=== PATIENT | male | born 1945 | race Caucasian/White ===

== ENCOUNTER 2018-05-01 20:38 | Emergency (ER) | payer MEDICARE, OTHER, SELFPAY ==
[2018-05-01 20:45] VITALS: BP 151/93; PULSE 71; RESP 18; O2SAT 97
--- NOTE | 2018-05-01 20:58 | DI.CT.S_ITS ---
PROCEDURE: CT KIDNEY URETER BLADDER (KUB) INDICATIONS: flank pain, hx kidney stone TECHNIQUE: Noncontrast 5 mm thick sections acquired from the diaphragms to the symphysis. 5 mm thick coronal and sagittal reformats were then performed. For radiation dose reduction, the following was used: automated exposure control, adjustment of mA and/or kV according to patient size. COMPARISON: [facility], CT, ABDOMEN/PELVIS WITH CONTRAST, 07/13/2017, 23:07. FINDINGS: Image quality: Excellent. Lung bases: Lung bases are clear. Heart size is normal. Urinary system: Both kidneys are normal in size. Nonobstructing 2 mm calculus within the superior pole left kidney. No right nephrolithiasis. No right hydronephrosis. Right ureter is within normal limits. There is mild left hydronephrosis and mild diffuse left ureteral dilatation. There is a 3 mm diameter calculus at the left ureterovesical junction. No hydronephrosis or perinephric fat stranding. Both ureters appear non-dilated throughout their expected courses. Bladder wall thickness is normal; no calcified bladder stones. Other solid organs: Liver is normal in size. Gallbladder is within normal limits. Pancreas is normal in contours. Spleen is normal in size. No adrenal nodules. Peritoneum and bowel: Small hiatal hernia. Unenhanced bowel loops demonstrate normal wall thickness and caliber. Diverticulosis of the descending and sigmoid colon. Normal appendix. No free fluid or air. Nodes and vessels: No retroperitoneal or mesenteric adenopathy by size criteria. Aorta and inferior vena cava are normal in caliber. Abdominal wall: No ventral hernias. Pelvis: No free pelvic fluid. No inguinal hernias or adenopathy. Bones: No suspicious bony lesions. No vertebral body compression fractures. IMPRESSION: 1. 3 mm diameter left ureterovesical junction calculus, with mild hydronephrosis. Small nonobstructing left renal calculus. 2. Small hiatal hernia. 3. Normal appendix. Dictated by: Arpit Avila M.D. on 05/01/2018 at 21:27 Approved by: Arpit Avila M.D. on 05/01/2018 at 21:29
--- NOTE | 2018-05-01 21:03 | ED_ITS ---
HPI - Abdominal Pain <GEOVANNA Whitten- - Last Filed: 05/01/18 21:57> General Chief Complaint: Abdominal Pain Stated Complaint: THINKS PASSING A KIDNEY STONE Time Seen by Provider: 05/01/18 20:49 Source: patient and family Mode of arrival: ambulatory Limitations: no limitations History of Present Illness HPI narrative: Patient is a 72-year-old male with history of kidney stone who presents with his with a chief complaint of left lower abdominal pain. He states this is consistent with his previous kidney stone. He states the pain comes in waves. He states he has vomited a few times with the pain. He denies any fevers, dysuria urgency or frequency. He denies any chest pain or shortness of breath. Denies any constipation or diarrhea. He states that the pain started a few hours ago. He denies calf the patient states his last bowel movement was today. He states no obvious blood in his urine. Related Data Home Medications Medication Instructions Recorded Confirmed simvastatin [Zocor] 20 mg PO Q DAY #0 11/16/12 Previous Rx's Medication Instructions Recorded hydrocodone-acetaminophen [[place]] 1 tab PO Q4HP PRN #15 tab 07/14/17 tamsulosin [Flomax] 0.4 mg PO Q DAY #7 cap 07/14/17 hydrocodone-acetaminophen 1 tab PO Q4-6H PRN #10 tab 05/01/18 ondansetron 4 mg PO TID-QID PRN #20 tab 05/01/18 tamsulosin [Flomax] 0.4 mg PO DAILY #7 cap 05/01/18 Review of Systems <CIARRA Whitten - Last Filed: 05/01/18 21:57> Review of Systems GENERAL: Denies chills, fatigue, malaise, fever, sweats. HEENT: Denies sinus pain, ear pain, sore throat, difficulty swallowing, dizziness. RESPIRATORY: Denies dyspnea, cough, wheezing, hemoptysis, sputum. CARDIOVASCULAR: Denies chest pain, palpitations, orthopnea, edema, GASTROINTESTINAL: See HPI : See HPI MUSCULOSKELETAL: denies weakness, joint pain, or bony pain SKIN: Denies rash, skin lesions, or other NEUROLOGIC: Denies weakness, headache, numbness, change in speech, confusion, seizures, incoordination. PSYCHIATRIC: No concerning psychosocial issues. 12 point review of systems is negative except for those stated above Exam <DORI Whitten - Last Filed: 05/01/18 21:57> Narrative Exam Narrative: GENERAL: This is a well-nourished, well-developed patient, sitting on stretcher with at bedside HEAD: Atraumatic. Normocephalic. No temporal or scalp tenderness. EYES: Pupils equal round and reactive. Extraocular motions intact. No scleral icterus. No injection or drainage. ENT: Nose without bleeding, purulent drainage or septal hematoma. Throat without erythema, tonsillar hypertrophy or exudate. Uvula midline. Airway patent. NECK: Trachea midline. No JVD or lymphadenopathy. Supple, nontender, no meningeal signs. CARDIOVASCULAR: Regular rate and rhythm without murmurs, gallops, or rubs. RESPIRATORY: Clear to auscultation. Breath sounds equal bilaterally. No wheezes , rales, or rhonchi. No cough or increased respiratory effort. GASTROINTESTINAL: Abdomen soft, diffuse tenderness lower left quadrant. nondistended. No hepato-splenomegaly, or palpable masses. No guarding. No palpable pulsatile mass. Active bowel sounds all 4 quadrants. EXTREMITIES: No clubbing, cyanosis, or edema. No joint tenderness, effusion, or edema noted. BACK: Nontender without deformity or crepitance. No flank tenderness. NEURO: AOx3. SKIN: No rash or erythema. Initial Vital Signs Initial Vital Signs: Vital Signs Pulse Rate 71 05/01/18 20:45 Respiratory Rate 18 05/01/18 20:45 Blood Pressure 151/93 H 05/01/18 20:45 Pulse Oximetry 97 05/01/18 20:45 <Kayden Oswald DO - Last Filed: 05/01/18 23:12> Initial Vital Signs Initial Vital Signs: Vital Signs Pulse Rate 71 05/01/18 20:45 Respiratory Rate 18 05/01/18 20:45 Blood Pressure 151/93 H 05/01/18 20:45 Pulse Oximetry 97 05/01/18 20:45 Course <DORI Whitten - Last Filed: 05/01/18 21:57> Orders Ordered: ED Orders 05/01/18 20:58 CT kidney ureter bladder (KUB) Stat 05/01/18 21:00 Amylase Stat Complete Blood Count AUTO DIFF Stat Comprehensive Metabolic Panel Stat Lipase Stat Discontinued Medications Hydrocodone Bitart/Acetaminophen ([place] 5/325) 2 tab PO NOW ONE Stop: 05/01/18 21:44 Last Admin: 05/01/18 21:58 Dose: 2 tab Hydrocodone Bitart/Acetaminophen (Vicodin Prepack) 1 bottle MISC SEEINSTR ONE Stop: 05/01/18 21:44 Last Admin: 05/01/18 21:58 Dose: 1 bottle Sodium Chloride (Normal Saline 0.9%) 1,000 mls @ 1,000 mls/hr IV BOLUS ONE Stop: 05/01/18 21:49 Last Infusion: 05/01/18 22:12 Dose: 0 mls/hr Admin: 05/01/18 21:05 Dose: 1,000 mls/hr Ketorolac Tromethamine (Toradol) 15 mg IV NOW ONE Stop: 05/01/18 20:59 Last Admin: 05/01/18 21:06 Dose: 15 mg Ondansetron HCl (Zofran) 4 mg IV NOW ONE Stop: 05/01/18 20:59 Last Admin: 05/01/18 21:06 Dose: 4 mg Ondansetron HCl (Zofran Odt Prepack) 1 bottle MISC SEEINSTR ONE Stop: 05/01/18 21:44 Last Admin: 05/01/18 21:58 Dose: 1 bottle Ondansetron HCl (Zofran) 4 mg IV NOW ONE Stop: 05/01/18 21:44 Last Admin: 05/01/18 22:01 Dose: 4 mg Tamsulosin HCl (Flomax) 0.4 mg PO NOW ONE Stop: 05/01/18 21:44 Last Admin: 05/01/18 21:58 Dose: 0.4 mg Reevaluation(s) Reevaluation #1: Patient states his pain is much improved since his Toradol. Denies any need for further pain or nausea medications at this time. Discussed waiting for his labs as well as the CT results. Patient and deny needs at this point time. Time: 21:30 Reevaluation #2: Discussed results CT scan with patient. Discussed straining urine, using Flomax for 1 week, pain medication nausea medication. Discussed follow-up primary care provider if he does not pass the stone. Discussed pushing fluid. Discussed monitoring renal labs given gradual increase in the past several visits. Time: 21:53 Vital Signs - 8 hr 05/01/18 20:45 05/01/18 22:13 Temperature 97.9 F Pulse Rate 71 65 Respiratory Rate 18 18 Blood Pressure 151/93 H 159/93 H Pulse Oximetry 97 99 <Kayden Oswlad DO - Last Filed: 05/01/18 23:12> Orders Ordered: ED Orders 05/01/18 20:58 CT kidney ureter bladder (KUB) Stat 05/01/18 21:00 Amylase Stat Complete Blood Count AUTO DIFF Stat Comprehensive Metabolic Panel Stat Lipase Stat Discontinued Medications Hydrocodone Bitart/Acetaminophen ([place] 5/325) 2 tab PO NOW ONE Stop: 05/01/18 21:44 Last Admin: 05/01/18 21:58 Dose: 2 tab Hydrocodone Bitart/Acetaminophen (Vicodin Prepack) 1 bottle MISC SEEINSTR ONE Stop: 05/01/18 21:44 Last Admin: 05/01/18 21:58 Dose: 1 bottle Sodium Chloride (Normal Saline 0.9%) 1,000 mls @ 1,000 mls/hr IV BOLUS ONE Stop: 05/01/18 21:49 Last Infusion: 05/01/18 22:12 Dose: 0 mls/hr Admin: 05/01/18 21:05 Dose: 1,000 mls/hr Ketorolac Tromethamine (Toradol) 15 mg IV NOW ONE Stop: 05/01/18 20:59 Last Admin: 05/01/18 21:06 Dose: 15 mg Ondansetron HCl (Zofran) 4 mg IV NOW ONE Stop: 05/01/18 20:59 Last Admin: 05/01/18 21:06 Dose: 4 mg Ondansetron HCl (Zofran Odt Prepack) 1 bottle MISC SEEINSTR ONE Stop: 05/01/18 21:44 Last Admin: 05/01/18 21:58 Dose: 1 bottle Ondansetron HCl (Zofran) 4 mg IV NOW ONE Stop: 05/01/18 21:44 Last Admin: 05/01/18 22:01 Dose: 4 mg Tamsulosin HCl (Flomax) 0.4 mg PO NOW ONE Stop: 05/01/18 21:44 Last Admin: 05/01/18 21:58 Dose: 0.4 mg Vital Signs - 8 hr 05/01/18 20:45 05/01/18 22:13 Temperature 97.9 F Pulse Rate 71 65 Respiratory Rate 18 18 Blood Pressure 151/93 H 159/93 H Pulse Oximetry 97 99 MDM - Abdominal Pain <INGRID WhittenP- - Last Filed: 05/01/18 21:57> Differential Diagnosis Differential diagnosis: Likely abdominal pain, acute appendicitis, calculus of kidney, constipation and diverticulitis Lab Data Attestation: I reviewed the patient's lab results. Result diagrams: 05/01/18 21:00 05/01/18 21:00 Lab Results 05/01/18 05/01/18 Range/Units 21:00 21:00 WBC 9.4 (4.5-11.0) X10^3/uL RBC 4.72 (4.5-5.9) X10^6/uL Hgb 15.2 (13.5-17.5) g/dL Hct 45.3 (41-53) % MCV 96.0 (80-100) fL MCH 32.2 (26-34) PG MCHC 33.5 (30-36) % RDW 13.0 (11.6-14.8) % Plt Count 242 (150-400) X10^3/uL Neut % (Auto) 74.4 (50-75) % Lymph % (Auto) 15.9 L (25-40) % [place] % (Auto) 7.4 (3-14) % Eos % (Auto) 1.7 L (2-4) % Baso % (Auto) 0.6 (0-2) % Neut # (Auto) 7000 H (1661-4278) /uL Sodium 143 (137-145) mmol/L Potassium 4.5 (3.4-5.1) mmol/L Chloride 103 (98-107) mmol/L Carbon Dioxide 25 (22-32) mmol/L BUN 25 H (9-20) mg/dL Creatinine 1.40 H (0.66-1.25) mg/dL Estimated GFR 49.5 L (>60) mL/min BUN/Creatinine Ratio 17.9 (6-22) Glucose 139 H (80-110) mg/dL Calcium 9.3 (8.4-10.2) mg/dL Total Bilirubin 0.5 (0.2-1.3) mg/dL AST 26 (17-59) IU/L ALT 31 (21-72) IU/L Alkaline Phosphatase 77 (38-126) U/L Total Protein 8.0 (6.3-8.2) g/dL Albumin 4.6 (3.5-5.0) g/dL Globulin 3.4 (1.7-4.1) g/dL Albumin/Globulin Ratio 1.4 (1.0-2.8) Amylase 102 (30-110) U/L Lipase 44 (23-300) U/L Point of care testing: Urine Dip Bedside Urine Glucose Negative Bedside Urine Bilirubin - Negative Bedside Urine Ketone - Negative Urine Specific [place]elle 1.015 Bedside Urine Occult Blood +++ Bedside Urine pH 6.5 Bedside Urine Protein +/- 15 Bedside Urine Urobilinogen - Negative Bedside Urine Nitrite - Negative Bedside Urine Leukocytes - Negative Esterase Imaging Data CT scan - abdomen: Radiologist's impression: [address] [address] [address] Scan Report Signed Patient: Barbi Pablo BMR#: [id number] : 4Acct:[id number] Age/Sex: 72 / MDate of Service: 05/01/18 Loc: ED Accession Number: [id number] Procedure: CT kidney ureter bladder (KUB) Ordering Provider: Dali Mosqueda- PROCEDURE: CT KIDNEY URETER BLADDER (KUB) INDICATIONS: flank pain, hx kidney stone TECHNIQUE: Noncontrast 5 mm thick sections acquired from the diaphragms to the symphysis. 5 mm thick coronal and sagittal reformats were then performed. For radiation dose reduction, the following was used: automated exposure control, adjustment of mA and/or kV according to patient size. COMPARISON: [facility], CT, ABDOMEN/PELVIS WITH CONTRAST, 07/13/2017, 23: 07. FINDINGS: Image quality: Excellent. Lung bases: Lung bases are clear. Heart size is normal. Urinary system: Both kidneys are normal in size. Nonobstructing 2 mm calculus within the superior pole left kidney. No right nephrolithiasis. No right hydronephrosis. Right ureter is within normal limits. There is mild left hydronephrosis and mild diffuse left ureteral dilatation. There is a 3 mm diameter calculus at the left ureterovesical junction. No hydronephrosis or perinephric fat stranding. Both ureters appear non-dilated throughout their expected courses. Bladder wall thickness is normal ; no calcified bladder stones. Other solid organs: Liver is normal in size. Gallbladder is within normal limits. Pancreas is normal in contours. Spleen is normal in size. No adrenal nodules. Peritoneum and bowel: Small hiatal hernia. Unenhanced bowel loops demonstrate normal wall thickness and caliber. Diverticulosis of the descending and sigmoid colon. Normal appendix. No free fluid or air. Nodes and vessels: No retroperitoneal or mesenteric adenopathy by size criteria. Aorta and inferior vena cava are normal in caliber. Abdominal wall: No ventral hernias. Pelvis: No free pelvic fluid. No inguinal hernias or adenopathy. Bones: No suspicious bony lesions. No vertebral body compression fractures. IMPRESSION: 1. 3 mm diameter left ureterovesical junction calculus, with mild hydronephrosis. Small nonobstructing left renal calculus. 2. Small hiatal hernia. 3. Normal appendix. Dictated by: Arpit Avila M.D. on 05/01/2018 at 21:27 Approved by: Arpit Avila M.D. on 05/01/2018 at 21:29 MDM Narrative Medical decision making narrative: Patient is a 72-year-old male who presents with chief complaint of ?I think I have a kidney stone?. CT revealed a kidney stone. He is given IV fluids, Zofran, [place] and Toradol in the emergency department. His labs with within normal limits for him. I encouraged follow- up with primary care provider in a few days of it does not pass the stone. He was given a urine strainer. Discussed monitoring for signs and symptoms of infection including fever, and inability to keep down fluids and any acute concerns. Patient and had no questions or concerns upon discharge. I discussed straining his urine. He had no questions or concerns upon discharge. <Kayden Oswald, - Last Filed: 05/01/18 23:12> Lab Data Lab Results 05/01/18 05/01/18 Range/Units 21:00 21:00 WBC 9.4 (4.5-11.0) X10^3/uL RBC 4.72 (4.5-5.9) X10^6/uL Hgb 15.2 (13.5-17.5) g/dL Hct 45.3 (41-53) % MCV 96.0 (80-100) fL MCH 32.2 (26-34) PG MCHC 33.5 (30-36) % RDW 13.0 (11.6-14.8) % Plt Count 242 (150-400) X10^3/uL Neut % (Auto) 74.4 (50-75) % Lymph % (Auto) 15.9 L (25-40) % [place] % (Auto) 7.4 (3-14) % Eos % (Auto) 1.7 L (2-4) % Baso % (Auto) 0.6 (0-2) % Neut # (Auto) 7000 H (4468-3867) /uL Sodium 143 (137-145) mmol/L Potassium 4.5 (3.4-5.1) mmol/L Chloride 103 (98-107) mmol/L Carbon Dioxide 25 (22-32) mmol/L BUN 25 H (9-20) mg/dL Creatinine 1.40 H (0.66-1.25) mg/dL Estimated GFR 49.5 L (>60) mL/min BUN/Creatinine Ratio 17.9 (6-22) Glucose 139 H (80-110) mg/dL Calcium 9.3 (8.4-10.2) mg/dL Total Bilirubin 0.5 (0.2-1.3) mg/dL AST 26 (17-59) IU/L ALT 31 (21-72) IU/L Alkaline Phosphatase 77 (38-126) U/L Total Protein 8.0 (6.3-8.2) g/dL Albumin 4.6 (3.5-5.0) g/dL Globulin 3.4 (1.7-4.1) g/dL Albumin/Globulin Ratio 1.4 (1.0-2.8) Amylase 102 (30-110) U/L Lipase 44 (23-300) U/L Point of care testing: Urine Dip Bedside Urine Glucose Negative Bedside Urine Bilirubin - Negative Bedside Urine Ketone - Negative Urine Specific [place] 1.015 Bedside Urine Occult Blood +++ Bedside Urine pH 6.5 Bedside Urine Protein +/- 15 Bedside Urine Urobilinogen - Negative Bedside Urine Nitrite - Negative Bedside Urine Leukocytes - Negative Esterase Discharge Plan Departure Patient Disposition: Home Clinical Impression: Calculus of left ureter Discharge Date/Time: 05/01/18 22:13 Interventions: ED Discharge Assessment Last Done: 05/01/18 22:13 Instructions: DI for Kidney Stones Activity Restrictions/Additional Instructions: You have a kidney stone. I am starting on a week of Flomax take this at night every night. I am giving you pain medication called hydrocodone, which she has taken before as well as a prescription of nausea medication. I am giving you take home packs of the nausea medication and pain medication as all pharmacies are closed. Please fish fluids. Please follow-up with primary care provider in a few days of the stone has not passed as you may need or referral to Urology. Please come back to emergency department for any acute concerns including inability to keep down fluids, chest pain or shortness of breath. Prescriptions: New tamsulosin [Flomax] 0.4 mg capsule 0.4 mg PO DAILY Qty: 7 RF: 0 hydrocodone-acetaminophen 5-325 mg tablet 1 tab PO Q4-6H PRN (Reason: pain) Qty: 10 RF: 0 ondansetron 4 mg tablet,disintegrating 4 mg PO TID-QID PRN (Reason: nausea and vomiting) Qty: 20 RF: 0 No Action simvastatin [Zocor] 5 MG tablet 20 mg PO Q DAY Qty: 0 RF: 0 hydrocodone-acetaminophen [[place]] 5 MG/325 MG tablet 1 tab PO Q4HP PRNQty: 15 RF: 0 tamsulosin [Flomax] 0.4 MG capsule,extended release 24hr 0.4 mg PO Q DAY Qty: 7 RF: 0 Referrals: Susy Sutton PA-C [Primary Care Provider] - <Kayden Oswald DO - Last Filed: 05/01/18 23:12> [facility] Joselo Attestation: I was immediately available in the department for consultation. Documentation has been reviewed. I agree with assessment and plan.
[2018-05-01] MEDS: SODIUM CHLORIDE 0.9% 1,000 ML 1000 ML IV (21:05)
[2018-05-01] MEDS: ONDANSETRON 4 MG/2 ML INJ IV ×2 (21:06→22:01)
[2018-05-01] MEDS: KETOROLAC 60 MG/2 ML VIAL 15 MG IV (21:06)
[2018-05-01 21:18] LABS: Add Manual Diff / Slide Review NO; Basophils Percent Auto 0.6 % (0-2); Eosinophils Percent Auto 1.7 % (2-4); Hematocrit 45.3 % (41-53); Hemoglobin 15.2 g/dL (13.5-17.5); Lymphocytes Percent Auto 15.9 % (25-40); Mean Corpuscular HGB Conc 33.5 % (30-36); Mean Corpuscular Hemoglobin 32.2 PG (26-34); Monocytes Percent Auto 7.4 % (3-14); Neutrophils Absolute Auto 7000 /uL (3000-5900); Neutrophils Percent Auto 74.4 % (50-75); Platelet Count 242 X10^3/uL (150-400); Red Blood Cell Count 4.72 X10^6/uL (4.5-5.9); White Blood Cell Count 9.4 X10^3/uL (4.5-11.0)
[2018-05-01 21:27] LABS: Alanine Aminotransferase 31 IU/L (21-72); Albumin 4.6 g/dL (3.5-5.0); Albumin Globulin Ratio 1.4 (1.0-2.8); Alkaline Phosphatase 77 U/L (38-126); Amylase 102 U/L (30-110); Aspartate Aminotransferase 26 IU/L (17-59); BUN Creatinine Ratio 17.9 (6-22); Bilirubin Total 0.5 mg/dL (0.2-1.3); Blood Urea Nitrogen 25 mg/dL (9-20); Calcium 9.3 mg/dL (8.4-10.2); Carbon Dioxide 25 mmol/L (22-32); Chloride 103 mmol/L (98-107); Estimated Glomerular Filt Rate 49.5 mL/min (>60); Globulin 3.4 g/dL (1.7-4.1); Glucose 139 mg/dL (80-110); HEMOLYSIS < 15 (0-50); Lipase 44 U/L (23-300); Potassium 4.5 mmol/L (3.4-5.1); Sodium 143 mmol/L (137-145)
[2018-05-01] MEDS: ONDANSETRON 4 MG ODT PREPACK 1 BOTTLE MISC (21:58)
[2018-05-01] MEDS: HYDROCODONE/ACET 5/325 TABLET 2 TAB PO (21:58)
[2018-05-01] MEDS: TAMSULOSIN 0.4 MG CAPSULE PO (21:58)
[2018-05-01] MEDS: HYDROCODONE/ACET 5/325 PREPACK 1 BOTTLE MISC (21:58)
[2018-05-01 22:13] VITALS: BP 159/93; PULSE 65; RESP 18; TEMP 36.6; O2SAT 99
== END 2018-05-01 22:13 | disposition home or self-care (01) ==
PROVIDERS: Emergency Provider Nurse Practitioner Family; Family Provider Physician Assistant; PCP Physician Assistant
DX: N20.1 Calculus of ureter (principal)
CPT/HCPCS: 36591; 74176; 80053; 81003; 82150; 83690; 85025; 96361; 96374; 96375; 96376; 99283; 99284; J1885; J2405

== ENCOUNTER 2019-05-12 14:39 | Emergency (ER) | payer MEDICARE, OTHER, SELFPAY ==
[2019-05-12 14:42] VITALS: BP 144/88; PULSE 67; RESP 15; TEMP 36.3; O2SAT 96; BMI 28.3
--- NOTE | 2019-05-12 15:11 | DI.RAD.S_ITS ---
PROCEDURE: XR CHEST 1V INDICATIONS: altered mental status TECHNIQUE: One view of the chest was acquired. COMPARISON: [facility], , CHEST 2 VIEW, 02/03/2015, 10:57. FINDINGS: Surgical changes and devices: None. Lungs and pleura: Lungs are clear. No pleural effusions or pneumothorax. Mediastinum: Mediastinal contours appear normal. Heart size is normal. Bones and chest wall: No suspicious bony lesions. Overlying soft tissues appear unremarkable. IMPRESSION: No acute disease. Dictated by: Jerel Chilel M.D. on 05/12/2019 at 15:34 Approved by: Jerel Chilel M.D. on 05/12/2019 at 15:35
[2019-05-12 15:14] VITALS: BP 150/108; PULSE 69; RESP 15; O2SAT 97
--- NOTE | 2019-05-12 15:17 | PC.NURSE ---
NIH scale 0 however patient reports mild memory loss such as inability to remember phone password or to distinguish if certain events actually occured and when they might have, for example patient had brunch with friends and reports that although he has the memory of this event he could not have said if it were an actual event and that it occured this morning
--- NOTE | 2019-05-12 15:20 | DI.CT.S_ITS ---
PROCEDURE: CT HEAD/BRAIN WO CON INDICATIONS: memory difficulty, hx of TIA TECHNIQUE: Noncontrast 4.5 mm thick angled axial sections acquired from the foramen magnum to the vertex, with coronal and sagittal reformats. For radiation dose reduction, the following was used: automated exposure control, adjustment of mA and/or kV according to patient size. COMPARISON: [facility], CT, HEAD WITHOUT CONTRAST, 05/17/2013, 7:42. FINDINGS: Image quality: Excellent. CSF spaces: Basal cisterns are patent. No extra-axial fluid collections. Ventricles are normal in size and shape. Brain: No midline shift. No intracranial masses or hemorrhage. Huynh-white matter interface is normal. Skull and face: Calvarium and visualized facial bones are intact, without suspicious lesions. Sinuses: Visualized sinuses and mastoids are clear. IMPRESSION: Negative head CT. No acute intracranial hemorrhage. Dictated by: Jules Jimenez M.D. on 05/12/2019 at 15:07 Approved by: Jules Jimenez M.D. on 05/12/2019 at 15:08
--- NOTE | 2019-05-12 15:25 | ED_ITS ---
HPI - Neuro Symptoms/Deficit <JINNY Carrera - Last Filed: 05/12/19 22:32> General Chief Complaint: Neuro Symptoms/Deficit Stated Complaint: ? TIA last night Time Seen by Provider: 05/12/19 14:58 Source: patient Mode of arrival: Ambulatory Limitations: no limitations History of Present Illness HPI Narrative: This is a pleasant 73-year-old male, nonsmoker, who presents to ED the spouse with chief complain of I may have TIA and reports having difficult time with putting thoughts together and was unable to remember his phone password which started about 9:00 a.m. when he woke up. Patient reports he does not have to use phone password daily but usually does uses his phone daily. He states his thought process was scrambled on when it happened. Patient reports he had problem with sleeping last night and woke up at 0230 including get back to sleep until and 6 am than woken up by his spouse at 0900 this morning. Patient denies headache, visual changes, history of AFib or arrhythmia, taking anticoagulant, balance difficulty, dysphagia, dysplasia, weakness to limbs, or facial droops. Patient has history of TIA about 2-3 years ago and was admitted to hospital overnight. Patient used to take statin for hyperlipidemia but he no longer has this condition. On Anticoagulants: No Related Data Home Medications Medication Instructions Recorded Confirmed simvastatin [Zocor] 20 mg PO Q DAY #0 11/16/12 Previous Rx's Medication Instructions Recorded hydrocodone-acetaminophen [[place]] 1 tab PO Q4HP PRN #15 tab 07/14/17 tamsulosin [Flomax] 0.4 mg PO Q DAY #7 cap 07/14/17 hydrocodone-acetaminophen 1 tab PO Q4-6H PRN #10 tab 05/01/18 ondansetron 4 mg PO TID-QID PRN #20 tab 05/01/18 tamsulosin [Flomax] 0.4 mg PO DAILY #7 cap 05/01/18 Allergies Allergy/AdvReac Type Severity Reaction Status Date / Time No Known Drug Allergies Allergy Verified 05/12/19 14:42 Review of Systems <JINNY Carrera - Last Filed: 05/12/19 22:32> Review of Systems Narrative: General: Denies fever, chills, fatigue, malaise, sweats. HEENT: Denies sinus pain, ear pain, sore throat, difficulty swallowing, dizziness. Respiratory: Denies dyspnea, cough, wheezing, hemoptysis, sputum. Cardiovascular: Denies chest pain, palpitations, orthopnea, edema. Gastrointestinal: Denies nausea, vomiting, abdominal pain, diarrhea, constipation, melena. : Denies dysuria, frequency, incontinence, hematuria, urinary retention. Musculoskeletal: Denies weakness, joint pain or bony pain. Skin: Denies rash, skin lesions, or other. Neurologic: See HPI Psychiatric: No concerning psychosocial issues. 12-point review of systems is negative except for those stated above. Patient History <JINNY Carrera - Last Filed: 05/12/19 22:32> Medical History High cholesterol (Acute) Hyperlipidemia (Acute) Kidney stone (Acute) TIA (transient ischemic attack) (Acute) Surgical History H/O eye surgery (Acute) Social History marital status: Smoking Status: Never smoker Smoking Status: Never smoker alcohol intake frequency: holidays/special occasions only Substance Use Type: marijuana Exam <JINNY Carrera - Last Filed: 05/12/19 22:32> Narrative Exam Narrative: GEN: Alert, oriented x 3, well appearing and nourished, and in no acute distress. Head: Normal cephalic, atraumatic. No scalp or temporal tenderness, palpable mass or rash. EYES: Pupils are equal, round, and reactive to light and accommodation. Extraocular muscles are intact bilaterally. There is no subconjunctival hemorrhage, exudate and sclera non-icteric. ENT: Bilateral auditory canals and tympanic membranes clear. Hearing grossly intact. Nose without bleeding, purulent discharge, septal hematoma or devia tion. Turbinate without erythema or swelling. Facial sinuses nontender to palpate. Mucous membrane moist, no mucosal lesion. Throat without erythema, tonsillar hypertrophy or exudate. Uvula in midline, airway patent. Neck: Trachea in midline. No JVD, non-tender without lymphadenopathy. No m asses or thyroid megaly. Supple, non-tender and no meningeal signs. CARDIAC: Normal regular rate and rhythm without murmurs, gallops, or rubs. No chest wall tenderness. No peripheral edema, cyanosis or pallor. Capillary refill is less than 2 seconds. No carotid bruits. RESPIRATORY: Lungs are cleat to auscultate bilaterally. No cough, wheezes, rales, or rhonchi. No stridor, respiratory distress, increase work of breathing, or accessary muscle used. ABD: Abdomen soft, nontender and non-distended. No guarding or rebound tenderness to palpate. Bowel sounds are normal in all 4 quadrants. There is no palpable masses or organomegaly. EXT: Full painless ROM of all extremities with no loss of sensation, strength, effusion or edema. SKIN: Warm, dry, normal color for patient. No erythema, lesions or rash. BACK: Nontender without deformity or crepitance. No flank tenderness. NEUROLOGICAL: Alert and oriented to place, time and person. No facial droops, dysphasia. CN II-XII intact. Strength and sensation symmetric and intact throughout. Reflexes 2+ throughout. Cerebellar testing normal. PSYCHIATRIC: Good judgement and reason, without hallucinations, abnormal affect or abnormal behaviors during the examination. Initial Vital Signs Initial Vital Signs: Vital Signs Temperature 97.3 F L 05/12/19 14:42 Pulse Rate 67 05/12/19 14:42 Respiratory Rate 15 05/12/19 14:42 Blood Pressure 144/88 H 05/12/19 14:42 Pulse Oximetry 96 05/12/19 14:42 <Cait Arboleda DO - Last Filed: 05/17/19 00:28> Initial Vital Signs Initial Vital Signs: Vital Signs Temperature 97.3 F L 05/12/19 14:42 Pulse Rate 67 05/12/19 14:42 Respiratory Rate 15 05/12/19 14:42 Blood Pressure 144/88 H 05/12/19 14:42 Pulse Oximetry 96 05/12/19 14:42 Scores <JINNY Carrera - Last Filed: 05/12/19 22:32> GCS [place] coma scale eye opening: Spontaneous [place] coma scale verbal response: Orientated [place] coma scale motor response: Obey commands [place] coma scale total score: 15 NIH Stroke Scale Level of Conciousness: Alert, keenly responsive Ask month/age: Answers both questions correctly. Open/close eyes, close hand: Performs both tasks correctly Best gaze horizontal: Normal Visual membreno: No visual loss Facial palsy: Normal symetrical movement Left arm drift: No drift for full 10 sec Right arm drift: No drift for full 10 sec Left leg drift: No drift for full 10 sec Right leg drift: No drift for full 10 sec Limb ataxia: Absent Sensory on face/arms/legs: Normal, no sensory loss Best language: No aphasia, normal Dysarthria: Normal Extinction or inattention: No abnormality Total NIH Stroke scale score: 0 Course <JINNY Carrera - Last Filed: 05/12/19 22:32> Orders Ordered: Discontinued Medications Aspirin (Aspirin Chew) 324 mg PO NOW ONE Stop: 05/12/19 16:53 Last Admin: 05/12/19 17:05 Dose: 324 mg [facility] Vital Signs Vital signs: Vital Signs - 8 hr 05/12/19 14:42 05/12/19 15:14 05/12/19 17:06 Temperature 97.3 F L Pulse Rate 67 69 68 Respiratory Rate 15 15 17 Blood Pressure 144/88 H Blood Pressure [Right Arm] 150/108 H 156/101 H Pulse Oximetry 96 97 99 <Cait Arboleda DO - Last Filed: 05/17/19 00:28> Orders Ordered: Discontinued Medications Aspirin (Aspirin Chew) 324 mg PO NOW ONE Stop: 05/12/19 16:53 Last Admin: 05/12/19 17:05 Dose: 324 mg Documented [facility]: [facility] Vital Signs Vital signs: Vital Signs - 8 hr 05/12/19 14:42 05/12/19 15:14 05/12/19 17:06 Temperature 97.3 F L Pulse Rate 67 69 68 Respiratory Rate 15 15 17 Blood Pressure 144/88 H Blood Pressure [Right Arm] 150/108 H 156/101 H Pulse Oximetry 96 97 99 MDM - Neuro Symptoms/Deficit <JINNY Carrera - Last Filed: 05/12/19 22:32> Differential Diagnosis Differential diagnosis: Likely cerebrovascular accident, transient cerebral ischemia and other (Memory loss) Medical Records Attestation: I reviewed the patient's medical records. Lab Data Attestation: I reviewed the patient's lab results. Result diagrams: 05/12/19 15:00 05/12/19 15:00 Labs: Lab Results 05/12/19 05/12/19 05/12/19 Range/Units 15:00 15:00 15:00 WBC 7.5 (4.5-11.0) X10^3/uL RBC 4.45 L (4.5-5.9) X10^6/uL Hgb 14.7 (13.5-17.5) g/dL Hct 43.4 (41-53) % MCV 97.7 (80-100) fL MCH 33.0 (26-34) PG MCHC 33.8 (30-36) % RDW 13.3 (11.6-14.8) % Plt Count 214 (150-400) X10^3/uL Neut % (Auto) 64.4 (50-75) % Lymph % (Auto) 22.1 L (25-40) % [place] % (Auto) 8.6 (3-14) % Eos % (Auto) 4.2 H (2-4) % Baso % (Auto) 0.7 (0-2) % Neut # (Auto) 4900 (4676-3266) /uL Lymph # (Auto) 1700 (7957-2415) /uL [place] # (Auto) 600 (0-900) /uL Eos # (Auto) 300 (0-450) /uL Baso # (Auto) 100 (0-100) /uL PT 11.1 (10.1-12.7) SECONDS INR 1.0 (0.9-1.3) APTT 31 (26.4-36.2) SECONDS Sodium 140 (137-145) mmol/L Potassium 4.0 (3.4-5.1) mmol/L Chloride 104 (98-107) mmol/L Carbon Dioxide 26 (22-32) mmol/L BUN 24 H (9-20) mg/dL Creatinine 1.20 (0.66-1.25) mg/dL Estimated GFR 59.0 L (>60) mL/min BUN/Creatinine Ratio 20.0 (6-22) Glucose 143 H (80-110) mg/dL Calcium 9.4 (8.4-10.2) mg/dL Total Bilirubin 0.7 (0.2-1.3) mg/dL AST 29 (17-59) IU/L ALT 21 (<50) IU/L Alkaline Phosphatase 71 (38-126) U/L Total Protein 7.5 (6.3-8.2) g/dL Albumin 4.3 (3.5-5.0) g/dL Globulin 3.2 (1.7-4.1) g/dL Albumin/Globulin Ratio 1.3 (1.0-2.8) Imaging Data CT scan - head: Radiologist's impression: Barbi Pablo 73 [address] [place] [address] CT Scan Report Signed Patient: Barbi Pablo BMR#: [id number] : 4Acct:[id number] Age/Sex: 73 / MDate of Service: 05/12/19 Loc: ED Accession Number: [id number] Procedure: CT head/brain wo con Ordering Provider: Sam Mcrae PROCEDURE: CT HEAD/BRAIN WO CON INDICATIONS: memory difficulty, hx of TIA TECHNIQUE: Noncontrast 4.5 mm thick angled axial sections acquired from the foramen magnum to the vertex, with coronal and sagittal reformats. For radiation dose reduction, the following was used: automated exposure control, adjustment of mA and/or kV according to patient size. COMPARISON: [facility], CT, HEAD WITHOUT CONTRAST, 05/17/2013, 7:42. FINDINGS: Image quality: Excellent. CSF spaces: Basal cisterns are patent. No extra-axial fluid collections. Ventricles are normal in size and shape. Brain: No midline shift. No intracranial masses or hemorrhage. Huynh-white matter interface is normal. Skull and face: Calvarium and visualized facial bones are intact, without suspicious lesions. Sinuses: Visualized sinuses and mastoids are clear. IMPRESSION: Negative head CT. No acute intracranial hemorrhage. Dictated by: Jules Jimenez M.D. on 05/12/2019 at 15:07 Approved by: Jules Jimenez M.D. on 05/12/2019 at 15:08 ECG Data Attestation: I personally reviewed and interpreted this ECG as follows: Prior ECG tracings: available for review Interpretation: SR rate at 64 with 1st AVB L [place] int 224, normal QRS, QT/QTc 422/432 History of 1st degree AV block MDM Narrative Medical decision making narrative: This is a 73-year-old male who has history of TIA about 2-3 years ago presents to ED with memory problem such as not being able to remember phone password. Patient had history with TIA with slurred speech with expressive and receptive aphasia. Patient does not endorses any neurological symptoms related to today's memory problem. Neuro exam was normal. NIHSS score was 0. EKG was normal sinus rhythm with first-degree AV block. Negative head CT for acute findings. Chest x-ray without acute findings. Unremarkable lab tests today. Patient was medicated with full dose of aspirin prior discharged to home. We discussed in detail about following up with further testing for TIA including and not limited with blood tests, cardiac echocardiogram, carotid ultrasound test, MRI/CT angiogram of brain outpatiently. Strict return precautions were discussed with patient and spouse and to call 911 neurological symptom occurs and verbalized understanding. Patient advised to take baby aspirin daily until seen by his primary care physician. Patient and spouse verbalized understanding and agrees with the treatment plan. <Cait Arboleda, DO - Last Filed: 05/17/19 00:28> Lab Data Labs: Lab Results 05/12/19 05/12/19 05/12/19 Range/Units 15:00 15:00 15:00 WBC 7.5 (4.5-11.0) X10^3/uL RBC 4.45 L (4.5-5.9) X10^6/uL Hgb 14.7 (13.5-17.5) g/dL Hct 43.4 (41-53) % MCV 97.7 (80-100) fL MCH 33.0 (26-34) PG MCHC 33.8 (30-36) % RDW 13.3 (11.6-14.8) % Plt Count 214 (150-400) X10^3/uL Neut % (Auto) 64.4 (50-75) % Lymph % (Auto) 22.1 L (25-40) % [place] % (Auto) 8.6 (3-14) % Eos % (Auto) 4.2 H (2-4) % Baso % (Auto) 0.7 (0-2) % Neut # (Auto) 4900 (7886-1945) /uL Lymph # (Auto) 1700 (7393-2970) /uL [place] # (Auto) 600 (0-900) /uL Eos # (Auto) 300 (0-450) /uL Baso # (Auto) 100 (0-100) /uL PT 11.1 (10.1-12.7) SECONDS INR 1.0 (0.9-1.3) APTT 31 (26.4-36.2) SECONDS Sodium 140 (137-145) mmol/L Potassium 4.0 (3.4-5.1) mmol/L Chloride 104 (98-107) mmol/L Carbon Dioxide 26 (22-32) mmol/L BUN 24 H (9-20) mg/dL Creatinine 1.20 (0.66-1.25) mg/dL Estimated GFR 59.0 L (>60) mL/min BUN/Creatinine Ratio 20.0 (6-22) Glucose 143 H (80-110) mg/dL Calcium 9.4 (8.4-10.2) mg/dL Total Bilirubin 0.7 (0.2-1.3) mg/dL AST 29 (17-59) IU/L ALT 21 (<50) IU/L Alkaline Phosphatase 71 (38-126) U/L Total Protein 7.5 (6.3-8.2) g/dL Albumin 4.3 (3.5-5.0) g/dL Globulin 3.2 (1.7-4.1) g/dL Albumin/Globulin Ratio 1.3 (1.0-2.8) ECG Data Attestation: I personally reviewed and interpreted this ECG as follows: Prior ECG tracings: available for review Interpretation: Normal sinus rhythm rate 64 p.r. interval 224 QRS 102 QTC 438 low voltage noted no ST elevation or depression previous EKG from 2013 similar Discharge Plan Departure Patient Disposition: Home Clinical Impression: Memory change Discharge Date/Time: 05/12/19 17:15 Instructions: DI for Transient Ischemic Attack Activity Restrictions/Additional Instructions: You have been diagnosed with [memory changes and possible TIA. CT of head and chest x-ray were w/o acute findings today. Electrolytes were normal. Mildly decreased kidney function test (GFR of 59) with normal Creatinine which is actually better than 1 year ago. Your EKG shows first-degree AV block which has not changed from 2013. You were medicated with aspirin while in the ED. The neurological exam today was normal.]. What to do: *Take your medications as directed. Please start taking baby aspirin daily from tomorrow. Have a good restful night tonight. *Follow up with your primary care provider in 2-3 days, call for an appointment. Let them know you were seen in the ED and that we asked you to be seen in follow up. You may need further workup for your symptoms with cardiac echocardiogram, ultrasound test in carotid and imaging test. *Return to ED if you have any new, worsening, or concerning symptoms, such as [chest pain, breathing difficulty, facial droops, weakness to limbs, vision change, balance problem, speech difficulty, severe headache, or any acute concerns and call 911 if you develop these symptoms. As we discussed, if you do have stroke symptoms you should be evaluated as soon as possible for of medication treatment preferably less than 3 hours]. Prescriptions: No Action simvastatin [Zocor] 5 MG tablet 20 mg PO Q DAY Qty: 0 RF: 0 hydrocodone-acetaminophen [[place]] 5 MG/325 MG tablet 1 tab PO Q4HP PRNQty: 15 RF: 0 tamsulosin [Flomax] 0.4 MG capsule,extended release 24hr 0.4 mg PO Q DAY Qty: 7 RF: 0 tamsulosin [Flomax] 0.4 mg capsule 0.4 mg PO DAILY Qty: 7 RF: 0 hydrocodone-acetaminophen 5-325 mg tablet 1 tab PO Q4-6H PRN (Reason: pain) Qty: 10 RF: 0 ondansetron 4 mg tablet,disintegrating 4 mg PO TID-QID PRN (Reason: nausea and vomiting) Qty: 20 RF: 0 Referrals: Sondra Rubi PA-C [Physician] -
[2019-05-12 15:27] LABS: Add Manual Diff / Slide Review NO; Basophils Absolute Auto 100 /uL (0-100); Basophils Percent Auto 0.7 % (0-2); Eosinophils Absolute Auto 300 /uL (0-450); Eosinophils Percent Auto 4.2 % (2-4); Hematocrit 43.4 % (41-53); Hemoglobin 14.7 g/dL (13.5-17.5); Lymphocytes Absolute Auto 1700 /uL (1100-4500); Lymphocytes Percent Auto 22.1 % (25-40); Mean Corpuscular HGB Conc 33.8 % (30-36); Mean Corpuscular Volume 97.7 fL (80-100); Monocytes Absolute Auto 600 /uL (0-900); Monocytes Percent Auto 8.6 % (3-14); Neutrophils Absolute Auto 4900 /uL (1500-7000); Neutrophils Percent Auto 64.4 % (50-75); Platelet Count 214 X10^3/uL (150-400); Red Blood Cell Count 4.45 X10^6/uL (4.5-5.9); Red Cell Distribution Width 13.3 % (11.6-14.8); White Blood Cell Count 7.5 X10^3/uL (4.5-11.0)
[2019-05-12 15:30] LABS: Prothrombin Time 11.1 SECONDS (10.1-12.7)
[2019-05-12 15:32] LABS: PTT Partial Thromboplastin Tim 31 SECONDS (26.4-36.2)
[2019-05-12 15:35] LABS: Alanine Aminotransferase 21 IU/L (<50); Albumin 4.3 g/dL (3.5-5.0); Albumin Globulin Ratio 1.3 (1.0-2.8); Alkaline Phosphatase 71 U/L (38-126); Aspartate Aminotransferase 29 IU/L (17-59); Bilirubin Total 0.7 mg/dL (0.2-1.3); Blood Urea Nitrogen 24 mg/dL (9-20); Calcium 9.4 mg/dL (8.4-10.2); Carbon Dioxide 26 mmol/L (22-32); Chloride 104 mmol/L (98-107); Globulin 3.2 g/dL (1.7-4.1); Glucose 143 mg/dL (80-110); HEMOLYSIS 24 (0-50); Sodium 140 mmol/L (137-145); Total Protein 7.5 g/dL (6.3-8.2)
[2019-05-12] MEDS: ASPIRIN 81 MG CHEW TAB 324 MG PO (17:05)
[2019-05-12 17:06] VITALS: BP 156/101; PULSE 68; RESP 17; O2SAT 99
== END 2019-05-12 17:15 | disposition home or self-care (01) ==
PROVIDERS: Emergency Provider Nurse Practitioner Family
DX: R41.3 Other amnesia (principal); R41.82 Altered mental status, unspecified; I44.30 Unspecified atrioventricular block
CPT/HCPCS: 36415; 70450; 71045; 80053; 85025; 85610; 85730; 93005; 93010; 99285

== ENCOUNTER → 2019-05-16 18:59 | Outpatient (ROUT) | payer MEDICARE, OTHER, SELFPAY ==
[2019-05-16 19:22] LABS: Alanine Aminotransferase 16 IU/L (<50); Albumin Globulin Ratio 1.4 (1.0-2.8); Alkaline Phosphatase 66 U/L (38-126); Aspartate Aminotransferase 23 IU/L (17-59); Bilirubin Total 0.4 mg/dL (0.2-1.3); Blood Urea Nitrogen 21 mg/dL (9-20); Calcium 9.1 mg/dL (8.4-10.2); Carbon Dioxide 27 mmol/L (22-32); Chloride 105 mmol/L (98-107); Cholesterol 181 mg/dL (140-199); Estimated Glomerular Filt Rate 49.4 mL/min (>60); Globulin 2.9 g/dL (1.7-4.1); Glucose 124 mg/dL (80-110); HDL Cholesterol 45 mg/dL (40-60); HEMOLYSIS < 15 (0-50); LDL Cholesterol Calculated 108 mg/dL (<100); Potassium 4.2 mmol/L (3.4-5.1); Sodium 141 mmol/L (137-145); Total Protein 6.9 g/dL (6.3-8.2); Triglycerides 139 mg/dL (35-150)
== END ==
PROVIDERS: Visit Provider Physician Assistant
DX: E78.2 Mixed hyperlipidemia (principal)
CPT/HCPCS: 80053; 80061

== ENCOUNTER → 2019-11-17 11:49 | Outpatient (CLI) | payer MEDICARE, OTHER, SELFPAY ==
--- NOTE | 2019-11-17 | DI.RAD.S_ITS ---
PROCEDURE: XR KNEE LT 1TO2V INDICATIONS: Acute Left Knee Pain TECHNIQUE: 3 views of the knee were acquired. COMPARISON: [facility], , KNEE 3V RIGHT, 11/29/2013, 10:31. FINDINGS: Bones: No acute fracture or dislocation. There is moderate medial femorotibial compartment narrowing. There is a small patellar enthesophyte and small intercondylar osteophytes. Soft tissues: No joint effusion. No suspicious soft tissue calcifications. IMPRESSION: Mildly osteoarthritis. No acute radiographic findings. If pain persists, followup imaging in 5-7 days is recommended to exclude occult fracture. Dictated by: Aziza Weller M.D. on 11/17/2019 at 14:05 Approved by: Aziza Weller M.D. on 11/17/2019 at 14:05
== END ==
PROVIDERS: PCP Student in an Organized Health Care Education/Training Program; Referring Provider Student in an Organized Health Care Education/Training Program; Visit Provider Student in an Organized Health Care Education/Training Program
DX: M25.562 Pain in left knee (principal); M17.12 Unilateral primary osteoarthritis, left knee
CPT/HCPCS: 73560

== ENCOUNTER 2022-11-02 12:28 | Emergency (ER) | payer MEDICARE, OTHER, SELFPAY ==
[2022-11-02] VITALS (13 sets, daily range): BP systolic 145–176; BP diastolic 80–101; PULSE 56–63; RESP 6–28; TEMP 36.6; O2SAT 96–99; BMI 28.3
--- NOTE | 2022-11-02 12:52 | DI.RAD.S_ITS ---
PROCEDURE: XR CHEST 1V INDICATIONS: chest pain TECHNIQUE: One view of the chest was acquired. COMPARISON: [facility], CT, CT HEAD/BRAIN WO CON, 11/02/2022, 13:40. [facility], CR, XR CHEST 1V, 05/12/2019, 15:09. FINDINGS: Surgical changes and devices: None. Lungs and pleura: On this semiupright portable chest examination, no large pneumothorax or large pleural effusions are seen. No focal infiltrates are seen. Mediastinum: The cardiac contours are within normal limits. The aorta demonstrates calcification and tortuosity. Bones and chest wall: Age-appropriate bony degenerative changes are seen. No suspicious bony lesions. Overlying soft tissues appear unremarkable. IMPRESSION: Unremarkable portable chest for age. Dictated by: Bharathi Cardoza M.D. on 11/02/2022 at 12:56 Approved by: Bharathi Cardoza M.D. on 11/02/2022 at 12:57
[2022-11-02 13:06] LABS: Prothrombin Time 11.5 SECONDS (10.1-12.7)
[2022-11-02 13:09] LABS: Add Manual Diff / Slide Review NO; Basophils Absolute Auto 100 /uL (0-100); Basophils Percent Auto 0.7 % (0-2); Eosinophils Absolute Auto 200 /uL (0-450); Hematocrit 43.1 % (41-53); Hemoglobin 14.6 g/dL (13.5-17.5); Lymphocytes Absolute Auto 1600 /uL (1100-4500); Lymphocytes Percent Auto 19.1 % (25-40); Mean Corpuscular HGB Conc 33.8 % (30-36); Mean Corpuscular Hemoglobin 32.6 PG (26-34); Mean Corpuscular Volume 96.4 fL (80-100); Monocytes Absolute Auto 700 /uL (0-900); Neutrophils Absolute Auto 5600 /uL (1500-7000); Neutrophils Percent Auto 68.2 % (50-75); PTT Partial Thromboplastin Tim 29 SECONDS (26-36); Platelet Count 228 X10^3/uL (150-400); Red Blood Cell Count 4.47 X10^6/uL (4.5-5.9); Red Cell Distribution Width 13.4 % (11.6-14.8); White Blood Cell Count 8.2 X10^3/uL (4.5-11.0)
[2022-11-02 13:14] LABS: Alanine Aminotransferase 21 IU/L (<50); Albumin 4.3 g/dL (3.5-5.0); Albumin Globulin Ratio 1.3 (1.0-2.8); Alkaline Phosphatase 77 U/L (38-126); Aspartate Aminotransferase 30 IU/L (17-59); BUN Creatinine Ratio 21.3 (6-22); Bilirubin Total 0.4 mg/dL (0.2-1.3); Blood Urea Nitrogen 19 mg/dL (9-20); Calcium 8.8 mg/dL (8.4-10.2); Carbon Dioxide 24 mmol/L (22-32); Chloride 106 mmol/L (98-107); Creatine Kinase 109 U/L (55-170); Estimated Glomerular Filt Rate > 60 mL/min (>60); Globulin 3.2 g/dL (1.7-4.1); Glucose 108 mg/dL (80-110); HEMOLYSIS < 15 (0-50); Lipase 42 U/L (23-300); Magnesium 2.1 mg/dL (1.6-2.3); Potassium 4.1 mmol/L (3.4-5.1); Sodium 138 mmol/L (137-145); Total Protein 7.5 g/dL (6.3-8.2)
--- NOTE | 2022-11-02 13:19 | ED_ITS ---
HPI - Chest Pain <Kurt Lema PA-C - Last Filed: 11/02/22 18:00> General Chief Complaint: Chest Pain Stated Complaint: REF/walk-in/chest pain t-10/brain fog Time Seen by Provider: 11/02/22 12:42 Source: patient Mode of arrival: Wheelchair Limitations: no limitations History of Present Illness HPI narrative: 76-year-old male with past medical history hyperlipidemia presents to the ED with 10 days of intermittent left-sided chest pain. Patient states that it is sometimes worsened with activity and exercise but not always. Patient states that the last time he had chest pain was 2 days ago. Patient also complains of some bilateral hand tremors. Denies numbness, tingling, weakness. Denies fever, chills, shortness of breath, nausea, vomiting, abdominal pain, dysuria, urinary frequency, lightheadedness, dizziness, syncope. Patient also reports feeling a mental fog yesterday, which he describes as feeling a little slow with numbers and more sleepy than usual. Related Data Home Medications Medication Instructions Recorded Confirmed simvastatin 5 mg tablet (Zocor) 20 mg PO Q DAY ##0 11/16/12 Previous Rx's Medication Instructions Recorded hydrocodone 5 mg-acetaminophen 325 1 tab PO Q4HP PRN #15 tabs 07/14/17 mg tablet ([place]) tamsulosin 0.4 mg capsule (Flomax) 0.4 mg PO Q DAY #7 caps 07/14/17 hydrocodone 5 mg-acetaminophen 325 1 tab PO Q4-6H PRN pain #10 tabs 05/01/18 mg tablet ondansetron 4 mg disintegrating 4 mg PO TID-QID PRN nausea and 05/01/18 tablet vomiting #20 tabs tamsulosin 0.4 mg capsule (Flomax) 0.4 mg PO DAILY #7 caps 05/01/18 Allergies Allergy/AdvReac Type Severity Reaction Status Date / Time No Known Drug Allergies Allergy Verified 11/02/22 12:52 Review of Systems <Kurt Lema PA-C - Last Filed: 11/02/22 18:00> Review of Systems ROS Unobtainable: All systems reviewed & are unremarkable except as noted in HPI and below Constitutional Constitutional: Denies chills, Reports daytime sleepiness, Denies fatigue, Denies fever(s), Denies frequent falls, Denies lethargy and Denies weakness Eyes Eyes: Denies change in vision, Denies eye discharge, Denies irritation and Denies loss of vision ENT Ears, Nose, Mouth, and Throat: Denies change in voice, Denies dizziness, Denies neck pain, Denies sore throat and Denies throat swelling Cardiovascular Cardiovascular: Reports chest pain, Denies irregular heart rhythm, Denies lightheadedness, Denies palpitations, Denies dyspnea, Denies dyspnea on exertion and Denies orthopnea Respiratory Respiratory: Denies cough, Denies dyspnea, Denies dyspnea on exertion and Denies wheezing Gastrointestinal Gastrointestinal: Denies abdominal pain, Denies change in bowel habits, Denies diarrhea, Denies nausea and Denies vomiting Genitourinary Genitourinary: Denies hematuria, Denies flank pain, Denies urinary incontinence and Denies urinary urgency Musculoskeletal Musculoskeletal: Denies back pain, Denies muscle weakness, Denies neck pain, Denies numbness and Denies tingling Integumentary/Breasts Skin/Breast: Denies pruritus, Denies erythema, Denies rash and Denies wounds Neurologic Neurologic: Denies behavioral changes, Denies confusion, Denies dizziness, Denies frequent falls, Denies loss of vision, Denies numbness, Denies tingling, Denies paresthesias, Reports tremor(s) and Denies weakness Comments: Bilateral hand tremors Psychiatric Psychiatric: Denies anxiety, Denies behavioral changes, Denies confusion, Denies depression, Denies homicidal ideation and Denies suicidal ideation Endocrine Endocrine: Denies fatigue, Denies flushing and Denies palpitations Hematologic/Lymphatic Hematologic/Lymphatic: Denies easy bruising Allergic/Immunologic Allergic/Immunologic: Denies urticaria, Denies throat swelling and Denies wheezing Patient History <Kurt Lema PA-C - Last Filed: 11/02/22 18:00> Medical History High cholesterol Hyperlipidemia Kidney stone TIA (transient ischemic attack) Surgical History H/O eye surgery Social History marital status: Smoking Status: Never smoker Smoking Status: Never smoker alcohol intake frequency: 0-2 drinks per day Substance Use Type: marijuana Exam <Kurt Lema PA-C - Last Filed: 11/02/22 18:00> Narrative Exam Narrative: Const General:?cooperative, healthy appearing and comfortable [facility] Head:?normal to inspection Ears:?hearing grossly normal bilaterally Nose:?external nose normal Face and sinus:?normal facial exam and sinuses nontender Mouth:?oral mucosae normal Throat:?posterior oropharynx normal Eyes General:?appearance normal, both eyes and all related structures Neck Neck:?normal visual inspection and no lymphadenopathy noted Resp Effort & Inspection:?normal respiratory effort Auscultation:?clear to auscultation bilaterally Cardio Rate:?regular rate Rhythm:?regular rhythm Neuro General:?patient alert, patient awake and patient oriented x3 Initial Vital Signs Initial Vital Signs: Vital Signs Temperature 97.9 F 11/02/22 12:34 Pulse Rate 57 L 11/02/22 12:34 Respiratory Rate 16 11/02/22 12:34 Blood Pressure 173/101 H 11/02/22 12:34 Pulse Oximetry 96 11/02/22 12:34 Oxygen Delivery Method Room Air 11/02/22 12:34 <Neri Savage MD - Last Filed: 11/07/22 12:34> Initial Vital Signs Initial Vital Signs: Vital Signs Temperature 97.9 F 11/02/22 12:34 Pulse Rate 57 L 11/02/22 12:34 Respiratory Rate 16 11/02/22 12:34 Blood Pressure 173/101 H 11/02/22 12:34 Pulse Oximetry 96 11/02/22 12:34 Oxygen Delivery Method Room Air 11/02/22 12:34 Course <Kurt Lema PA-C - Last Filed: 11/02/22 18:00> Orders Ordered: Discontinued Medications Aspirin (Aspirin 81 Mg Chew Tab) 324 mg PO NOW ONE Stop: 11/02/22 12:53 Last Admin: 11/02/22 13:51 Dose: Not Given Documented By: KAI Vital Signs Vital signs: Vital Signs - 8 hr 11/02/22 12:34 11/02/22 12:46 11/02/22 13:00 Temperature 97.9 F Pulse Rate 57 L 58 L Respiratory Rate 16 15 Blood Pressure 173/101 H 153/85 H Pulse Oximetry 96 97 Oxygen Delivery Method Room Air 11/02/22 13:00 11/02/22 13:30 11/02/22 13:30 Temperature Pulse Rate 62 58 L Respiratory Rate 17 13 Blood Pressure 145/90 H Pulse Oximetry 97 96 Oxygen Delivery Method Room Air 11/02/22 13:41 11/02/22 13:41 11/02/22 14:00 Temperature Pulse Rate 63 Respiratory Rate 17 Blood Pressure 174/99 H 149/83 H Pulse Oximetry 99 Oxygen Delivery Method 11/02/22 14:00 11/02/22 14:30 11/02/22 14:30 Temperature Pulse Rate 57 L 56 L Respiratory Rate 14 14 Blood Pressure 148/80 H Pulse Oximetry 97 98 Oxygen Delivery Method 11/02/22 15:00 11/02/22 15:00 11/02/22 15:30 Temperature Pulse Rate 57 L 59 L Respiratory Rate 14 28 H Blood Pressure 168/90 H Pulse Oximetry 99 99 Oxygen Delivery Method 11/02/22 16:00 11/02/22 16:00 11/02/22 16:30 Temperature Pulse Rate 56 L Respiratory Rate 12 Blood Pressure 162/83 H 168/100 H Pulse Oximetry 99 Oxygen Delivery Method 11/02/22 16:30 11/02/22 17:00 11/02/22 17:00 Temperature Pulse Rate 61 59 L Respiratory Rate 24 6 L Blood Pressure 174/99 H Pulse Oximetry 98 99 Oxygen Delivery Method Room Air 11/02/22 17:30 11/02/22 17:30 Temperature Pulse Rate 59 L Respiratory Rate 16 Blood Pressure 176/99 H Pulse Oximetry 98 Oxygen Delivery Method <Neri Savage MD - Last Filed: 11/07/22 12:34> Orders Ordered: Discontinued Medications Aspirin (Aspirin 81 Mg Chew Tab) 324 mg PO NOW ONE Stop: 11/02/22 12:53 Last Admin: 11/02/22 13:51 Dose: Not Given Documented By: RL Vital Signs Vital signs: Vital Signs - 8 hr 11/02/22 12:34 11/02/22 12:46 11/02/22 13:00 Temperature 97.9 F Pulse Rate 57 L 58 L Respiratory Rate 16 15 Blood Pressure 173/101 H 153/85 H Pulse Oximetry 96 97 Oxygen Delivery Method Room Air 11/02/22 13:00 11/02/22 13:30 11/02/22 13:30 Temperature Pulse Rate 62 58 L Respiratory Rate 17 13 Blood Pressure 145/90 H Pulse Oximetry 97 96 Oxygen Delivery Method Room Air 11/02/22 13:41 11/02/22 13:41 11/02/22 14:00 Temperature Pulse Rate 63 Respiratory Rate 17 Blood Pressure 174/99 H 149/83 H Pulse Oximetry 99 Oxygen Delivery Method 11/02/22 14:00 11/02/22 14:30 11/02/22 14:30 Temperature Pulse Rate 57 L 56 L Respiratory Rate 14 14 Blood Pressure 148/80 H Pulse Oximetry 97 98 Oxygen Delivery Method 11/02/22 15:00 11/02/22 15:00 11/02/22 15:30 Temperature Pulse Rate 57 L 59 L Respiratory Rate 14 28 H Blood Pressure 168/90 H Pulse Oximetry 99 99 Oxygen Delivery Method 11/02/22 16:00 11/02/22 16:00 11/02/22 16:30 Temperature Pulse Rate 56 L Respiratory Rate 12 Blood Pressure 162/83 H 168/100 H Pulse Oximetry 99 Oxygen Delivery Method 11/02/22 16:30 11/02/22 17:00 11/02/22 17:00 Temperature Pulse Rate 61 59 L Respiratory Rate 24 6 L Blood Pressure 174/99 H Pulse Oximetry 98 99 Oxygen Delivery Method Room Air 11/02/22 17:30 11/02/22 17:30 Temperature Pulse Rate 59 L Respiratory Rate 16 Blood Pressure 176/99 H Pulse Oximetry 98 Oxygen Delivery Method MDM - Chest Pain <Kurt Lema PA-C - Last Filed: 11/02/22 18:00> Lab Data 11/02/22 12:44 11/02/22 12:44 Labs: Lab Results 11/02/22 11/02/22 11/02/22 Range/Units 12:44 12:44 12:44 WBC 8.2 (4.5-11.0) X10^3/uL RBC 4.47 L (4.5-5.9) X10^6/uL Hgb 14.6 (13.5-17.5) g/dL Hct 43.1 (41-53) % MCV 96.4 (80-100) fL MCH 32.6 (26-34) PG MCHC 33.8 (30-36) % RDW 13.4 (11.6-14.8) % Plt Count 228 (150-400) X10^3/uL Neut % (Auto) 68.2 (50-75) % Lymph % (Auto) 19.1 L (25-40) % [place] % (Auto) 9.0 (3-14) % Eos % (Auto) 3.0 (2-4) % Baso % (Auto) 0.7 (0-2) % Neut # (Auto) 5600 (1041-6071) /uL Lymph # (Auto) 1600 (5609-2531) /uL [place] # (Auto) 700 (0-900) /uL Eos # (Auto) 200 (0-450) /uL Baso # (Auto) 100 (0-100) /uL PT 11.5 (10.1-12.7) SECONDS INR 1.0 (0.9-1.3) APTT 29 (26-36) SECONDS Sodium 138 (137-145) mmol/L Potassium 4.1 (3.4-5.1) mmol/L Chloride 106 (98-107) mmol/L Carbon Dioxide 24 (22-32) mmol/L BUN 19 (9-20) mg/dL Creatinine 0.89 (0.66-1.25) mg/dL Estimated GFR > 60 (>60) mL/min BUN/Creatinine Ratio 21.3 (6-22) Glucose 108 (80-110) mg/dL Calcium 8.8 (8.4-10.2) mg/dL Magnesium 2.1 (1.6-2.3) mg/dL Total Bilirubin 0.4 (0.2-1.3) mg/dL AST 30 (17-59) IU/L ALT 21 (<50) IU/L Alkaline Phosphatase 77 (38-126) U/L Total Creatine Kinase 109 (55-170) U/L CK-MB (CK-2) TNP CK-MB (CK-2) Rel Index TNP Troponin I 0.012 (0.01-0.034) ng/mL Total Protein 7.5 (6.3-8.2) g/dL Albumin 4.3 (3.5-5.0) g/dL Globulin 3.2 (1.7-4.1) g/dL Albumin/Globulin Ratio 1.3 (1.0-2.8) Lipase 42 (23-300) U/L 11/02/22 11/02/22 Range/Units 15:05 17:09 WBC (4.5-11.0) X10^3/uL RBC (4.5-5.9) X10^6/uL Hgb (13.5-17.5) g/dL Hct (41-53) % MCV (80-100) fL MCH (26-34) PG MCHC (30-36) % RDW (11.6-14.8) % Plt Count (150-400) X10^3/uL Neut % (Auto) (50-75) % Lymph % (Auto) (25-40) % [place] % (Auto) (3-14) % Eos % (Auto) (2-4) % Baso % (Auto) (0-2) % Neut # (Auto) (5555-6381) /uL Lymph # (Auto) (5278-7084) /uL [place] # (Auto) (0-900) /uL Eos # (Auto) (0-450) /uL Baso # (Auto) (0-100) /uL PT (10.1-12.7) SECONDS INR (0.9-1.3) APTT (26-36) SECONDS Sodium (137-145) mmol/L Potassium (3.4-5.1) mmol/L Chloride (98-107) mmol/L Carbon Dioxide (22-32) mmol/L BUN (9-20) mg/dL Creatinine (0.66-1.25) mg/dL Estimated GFR (>60) mL/min BUN/Creatinine Ratio (6-22) Glucose (80-110) mg/dL Calcium (8.4-10.2) mg/dL Magnesium (1.6-2.3) mg/dL Total Bilirubin (0.2-1.3) mg/dL AST (17-59) IU/L ALT (<50) IU/L Alkaline Phosphatase (38-126) U/L Total Creatine Kinase (55-170) U/L CK-MB (CK-2) CK-MB (CK-2) Rel Index Troponin I 0.016 0.015 (0.01-0.034) ng/mL Total Protein (6.3-8.2) g/dL Albumin (3.5-5.0) g/dL Globulin (1.7-4.1) g/dL Albumin/Globulin Ratio (1.0-2.8) Lipase (23-300) U/L Urine Dip Bedside Urine Glucose Negative Bedside Urine Bilirubin - Negative Bedside Urine Ketone - Negative Urine Specific [place] 1.02 Bedside Urine Occult Blood - Negative Bedside Urine pH 6.0 Bedside Urine Protein - Negative Bedside Urine Urobilinogen - Negative Bedside Urine Nitrite - Negative Bedside Urine Leukocytes - Negative Esterase MDM Narrative Medical decision making narrative: 76-year-old male with past medical history hyperlipidemia presents to the ED with 10 days of intermittent left-sided chest pain. Concern for ACS versus pneumonia versus intracranial hemorrhage versus UTI versus other. Will obtain EKG, chest x-ray, labs, UA, CT head. Will reassess. Workup was largely unremarkable. Three serial troponins, EKG within normal limits. Heart score 3, low score. Safe for discharge. Recommend follow-up with PCP as soon as possible. ED return precautions discussed with patient. Patient verbalized understanding. Medical records reviewed: Yes <Neri Savage MD - Last Filed: 11/07/22 12:34> Lab Data Labs: Lab Results 11/02/22 11/02/22 11/02/22 Range/Units 12:44 12:44 12:44 WBC 8.2 (4.5-11.0) X10^3/uL RBC 4.47 L (4.5-5.9) X10^6/uL Hgb 14.6 (13.5-17.5) g/dL Hct 43.1 (41-53) % MCV 96.4 (80-100) fL MCH 32.6 (26-34) PG MCHC 33.8 (30-36) % RDW 13.4 (11.6-14.8) % Plt Count 228 (150-400) X10^3/uL Neut % (Auto) 68.2 (50-75) % Lymph % (Auto) 19.1 L (25-40) % [place] % (Auto) 9.0 (3-14) % Eos % (Auto) 3.0 (2-4) % Baso % (Auto) 0.7 (0-2) % Neut # (Auto) 5600 (0869-5914) /uL Lymph # (Auto) 1600 (2417-3565) /uL [place] # (Auto) 700 (0-900) /uL Eos # (Auto) 200 (0-450) /uL Baso # (Auto) 100 (0-100) /uL PT 11.5 (10.1-12.7) SECONDS INR 1.0 (0.9-1.3) APTT 29 (26-36) SECONDS Sodium 138 (137-145) mmol/L Potassium 4.1 (3.4-5.1) mmol/L Chloride 106 (98-107) mmol/L Carbon Dioxide 24 (22-32) mmol/L BUN 19 (9-20) mg/dL Creatinine 0.89 (0.66-1.25) mg/dL Estimated GFR > 60 (>60) mL/min BUN/Creatinine Ratio 21.3 (6-22) Glucose 108 (80-110) mg/dL Calcium 8.8 (8.4-10.2) mg/dL Magnesium 2.1 (1.6-2.3) mg/dL Total Bilirubin 0.4 (0.2-1.3) mg/dL AST 30 (17-59) IU/L ALT 21 (<50) IU/L Alkaline Phosphatase 77 (38-126) U/L Total Creatine Kinase 109 (55-170) U/L CK-MB (CK-2) TNP CK-MB (CK-2) Rel Index TNP Troponin I 0.012 (0.01-0.034) ng/mL Total Protein 7.5 (6.3-8.2) g/dL Albumin 4.3 (3.5-5.0) g/dL Globulin 3.2 (1.7-4.1) g/dL Albumin/Globulin Ratio 1.3 (1.0-2.8) Lipase 42 (23-300) U/L 11/02/22 11/02/22 Range/Units 15:05 17:09 WBC (4.5-11.0) X10^3/uL RBC (4.5-5.9) X10^6/uL Hgb (13.5-17.5) g/dL Hct (41-53) % MCV (80-100) fL MCH (26-34) PG MCHC (30-36) % RDW (11.6-14.8) % Plt Count (150-400) X10^3/uL Neut % (Auto) (50-75) % Lymph % (Auto) (25-40) % [place] % (Auto) (3-14) % Eos % (Auto) (2-4) % Baso % (Auto) (0-2) % Neut # (Auto) (0916-2721) /uL Lymph # (Auto) (1651-9433) /uL [place] # (Auto) (0-900) /uL Eos # (Auto) (0-450) /uL Baso # (Auto) (0-100) /uL PT (10.1-12.7) SECONDS INR (0.9-1.3) APTT (26-36) SECONDS Sodium (137-145) mmol/L Potassium (3.4-5.1) mmol/L Chloride (98-107) mmol/L Carbon Dioxide (22-32) mmol/L BUN (9-20) mg/dL Creatinine (0.66-1.25) mg/dL Estimated GFR (>60) mL/min BUN/Creatinine Ratio (6-22) Glucose (80-110) mg/dL Calcium (8.4-10.2) mg/dL Magnesium (1.6-2.3) mg/dL Total Bilirubin (0.2-1.3) mg/dL AST (17-59) IU/L ALT (<50) IU/L Alkaline Phosphatase (38-126) U/L Total Creatine Kinase (55-170) U/L CK-MB (CK-2) CK-MB (CK-2) Rel Index Troponin I 0.016 0.015 (0.01-0.034) ng/mL Total Protein (6.3-8.2) g/dL Albumin (3.5-5.0) g/dL Globulin (1.7-4.1) g/dL Albumin/Globulin Ratio (1.0-2.8) Lipase (23-300) U/L Urine Dip Bedside Urine Glucose Negative Bedside Urine Bilirubin - Negative Bedside Urine Ketone - Negative Urine Specific [place] 1.02 Bedside Urine Occult Blood - Negative Bedside Urine pH 6.0 Bedside Urine Protein - Negative Bedside Urine Urobilinogen - Negative Bedside Urine Nitrite - Negative Bedside Urine Leukocytes - Negative Esterase Discharge Plan Departure Patient Disposition: Home Clinical Impression: Chest pain Instructions: DI for Chest Pain Activity Restrictions/Additional Instructions: You were evaluated in the ED today for chest pain. Your EKG, chest x-ray, labs were normal. It is unclear what the cause of your chest pain is, please follow- up with your PCP as soon as possible. Return to the ED if you have worsening chest pain or shortness of breath. Prescriptions: No Action simvastatin [Zocor] 5 MG tablet 20 mg PO Q DAY Qty: 0 hydrocodone-acetaminophen [[place]] 5 MG/325 MG tablet 1 tab PO Q4HP PRNQty: 15 0RF tamsulosin [Flomax] 0.4 MG capsule,extended release 24hr 0.4 mg PO Q DAY Qty: 7 0RF tamsulosin [Flomax] 0.4 mg capsule 0.4 mg PO DAILY Qty: 7 0RF hydrocodone-acetaminophen 5-325 mg tablet 1 tab PO Q4-6H PRN (Reason: pain) Qty: 10 0RF ondansetron 4 mg tablet,disintegrating 4 mg PO TID-QID PRN (Reason: nausea and vomiting) Qty: 20 0RF Referrals: Sondra Rubi, PAJoryC [Primary Care Provider] - Stand Alone Forms: Patient Portal/API <Neri Savage MD - Last Filed: 11/07/22 12:34> Cosign ED Attending Cosbillyature Attestation: I was immediately available in the department for consultation. This documentation has been reviewed and I agree with assessment and plan. Supervised by Neri Savage MD
[2022-11-02 13:26] LABS: Troponin I 0.012 ng/mL (0.01-0.034)
--- NOTE | 2022-11-02 13:29 | DI.CT.S_ITS ---
PROCEDURE: CT HEAD/BRAIN WO CON INDICATIONS: Fogginess TECHNIQUE: Noncontrast 4.5 mm thick angled axial sections acquired from the foramen magnum to the vertex, with coronal and sagittal reformats. For radiation dose reduction, the following was used: automated exposure control, adjustment of mA and/or kV according to patient size. COMPARISON: [facility], CR, XR CHEST 1V, 11/02/2022, 12:49. [facility], CT, CT HEAD/BRAIN WO CON, 05/12/2019, 15:27. FINDINGS: Image quality: Excellent. CSF spaces: Basal cisterns are patent. No extra-axial fluid collections. The ventricles are symmetric in size and shape. Brain: No intracranial bleeds or masses. There is cerebral volume loss for age, with resultant ventricular and sulcal prominence. There are periventricular and deep white matter chronic small vessel ischemic changes. There is intracranial internal carotid artery atherosclerosis. Skull and face: Calvarium and visualized facial bones appear intact, without suspicious lesions. Sinuses: Visualized sinuses and mastoids are clear. IMPRESSION: Normal noncontrast head CT, stable prior. Dictated by: Bharathi Cardoza M.D. on 11/02/2022 at 12:57 Approved by: Bharathi Cardoza M.D. on 11/02/2022 at 12:58
[2022-11-02 15:42] LABS: Troponin I 0.016 ng/mL (0.01-0.034)
[2022-11-02 17:48] LABS: Troponin I 0.015 ng/mL (0.01-0.034)
== END 2022-11-02 18:15 | disposition home or self-care (01) ==
PROVIDERS: Emergency Provider Student in an Organized Health Care Education/Training Program; PCP Student in an Organized Health Care Education/Training Program
DX: R07.9 Chest pain, unspecified (principal); R25.1 Tremor, unspecified; R41.9 Unspecified symptoms and signs involving cognitive functions and awareness
CPT/HCPCS: 36415; 70450; 71045; 80053; 81003; 82550; 83690; 83735; 84484; 85025; 85610; 85730; 93005; 93010; 99284

== ENCOUNTER 2022-11-03 11:21 | Emergency (ER) | payer MEDICARE, OTHER, SELFPAY ==
[2022-11-03 11:25] VITALS: BP 172/90; PULSE 77; RESP 18; TEMP 36.7; O2SAT 99; BMI 28.3
--- NOTE | 2022-11-03 11:29 | ED_ITS ---
HPI - Neuro Symptoms/Deficit General Chief Complaint: Neuro Symptoms/Deficit Stated Complaint: thinks hes having a stroke Time Seen by Provider: 11/03/22 11:26 History of Present Illness HPI Narrative: Patient is a 76-year-old male history of hyperlipidemia, BPH, TIA presenting today with word trouble finding. He reports it started around 10:00 a.m. lasted briefly now he just feels like he has brain fog. No numbness tingling or weakness no facial droop. He says that he previously had a TIA. He was able to make breakfast this morning without any difficulty. He said his symptoms started only was looking at the computer. He was here and evaluated yesterday for some atypical chest pain. He says he is no longer having chest pain or shortness breath. He denies any alcohol use or marijuana use. Related Data Home Medications Medication Instructions Recorded Confirmed simvastatin 5 mg tablet (Zocor) 20 mg PO Q DAY ##0 11/16/12 Previous Rx's Medication Instructions Recorded hydrocodone 5 mg-acetaminophen 325 1 tab PO Q4HP PRN #15 tabs 07/14/17 mg tablet ([place]) tamsulosin 0.4 mg capsule (Flomax) 0.4 mg PO Q DAY #7 caps 07/14/17 hydrocodone 5 mg-acetaminophen 325 1 tab PO Q4-6H PRN pain #10 tabs 05/01/18 mg tablet ondansetron 4 mg disintegrating 4 mg PO TID-QID PRN nausea and 05/01/18 tablet vomiting #20 tabs tamsulosin 0.4 mg capsule (Flomax) 0.4 mg PO DAILY #7 caps 05/01/18 Allergies Allergy/AdvReac Type Severity Reaction Status Date / Time No Known Drug Allergies Allergy Verified 11/02/22 12:52 Review of Systems Review of Systems ROS Unobtainable: All systems reviewed & are unremarkable except as noted in HPI and below Patient History Medical History High cholesterol Hyperlipidemia Kidney stone TIA (transient ischemic attack) Surgical History H/O eye surgery Social History marital status: Smoking Status: Never smoker Smoking Status: Never smoker alcohol intake frequency: 0-2 drinks per day Substance Use Type: marijuana Exam Initial Vital Signs Initial Vital Signs: Vital Signs Temperature 98.1 F 11/03/22 11:25 Pulse Rate 77 11/03/22 11:25 Respiratory Rate 18 11/03/22 11:25 Blood Pressure 172/90 H 11/03/22 11:25 Pulse Oximetry 99 11/03/22 11:25 Oxygen Delivery Method Room Air 11/03/22 11:25 GENERAL: Alert pleasant 68-year-old male HEENT: Head atraumatic,EOMI, pupils reactive, face symmetric, moist mucous membranes CARDIOVASCULAR: Regular rate and rhythm without murmurs, rubs or gallops. RESPIRATORY: Breath sounds equal bilaterally, no wheezes rales or rhonchi. ABDOMEN: Soft, nontender. Normoactive bowel sounds all 4 quadrants. No guarding or rebound. EXTREMITIES: Normal range of motion, no clubbing or edema. Neurovascularly intact NEUROLOGICAL: Alert and oriented x4.Normal gait and speech. Cranial nerves II t hrough XII grossly intact. Good [id number], good [id number], strength equal bilaterally, no dysarthria or aphasia, sensation in tact to soft touch bilaterally, no visual changes, no facial droop SKIN: Warm, dry, no laceration, no petechiae, no rashes or lesions. Scores NIH Stroke Scale Level of Conciousness: Alert, keenly responsive Ask month/age: Answers both questions correctly. Open/close eyes, close hand: Performs both tasks correctly Best gaze horizontal: Normal Visual membreno: No visual loss Facial palsy: Normal symetrical movement Left arm drift: No drift for full 10 sec Right arm drift: No drift for full 10 sec Left leg drift: No drift for full 5 sec Right leg drift: No drift for full 5 sec Limb ataxia: Absent Sensory on face/arms/legs: Normal, no sensory loss Best language: No aphasia, normal Dysarthria: Normal Extinction or inattention: No abnormality Total NIH Stroke scale score: 0 Course Orders Ordered: ED Orders 11/03/22 11:34 XR chest 1V Stat EKG-12 Lead Stat 11/03/22 11:49 Acetaminophen Stat Complete Blood Count AUTO DIFF Stat Comprehensive Metabolic Panel Stat ETOH [Ethanol (ETOH)] Stat Lactate (Lactic Acid) Stat Lipase Stat Procalcitonin Stat Salicylate Stat Troponin & CK Cardiac Panel Stat 11/03/22 12:10 MR stroke Stat Discontinued Medications Lorazepam (Lorazepam 2 Mg/Ml Inj) 0.5 mg IV NOW ONE Stop: 11/03/22 13:31 Last Admin: 11/03/22 13:55 Dose: 0.5 mg Documented By: NR Vital Signs Vital signs: Vital Signs - 8 hr 11/03/22 11:25 11/03/22 12:06 11/03/22 12:07 Temperature 98.1 F Pulse Rate 77 69 Respiratory Rate 18 Blood Pressure 172/90 H 175/97 H Pulse Oximetry 99 98 Oxygen Delivery Method Room Air 11/03/22 12:07 11/03/22 12:30 11/03/22 12:30 Temperature Pulse Rate 67 64 Respiratory Rate 15 Blood Pressure 142/81 H Pulse Oximetry 97 96 Oxygen Delivery Method Room Air MDM - Neuro Symptoms/Deficit Lab Data 11/03/22 11:49 11/03/22 11:49 Labs: Lab Results 11/03/22 11/03/22 11/03/22 Range/Units 11:49 11:49 11:49 WBC 5.1 (4.5-11.0) X10^3/uL RBC 4.30 L (4.5-5.9) X10^6/uL Hgb 14.0 (13.5-17.5) g/dL Hct 41.6 (41-53) % MCV 96.7 (80-100) fL MCH 32.7 (26-34) PG MCHC 33.8 (30-36) % RDW 13.4 (11.6-14.8) % Plt Count 203 (150-400) X10^3/uL Neut % (Auto) 61.6 (50-75) % Lymph % (Auto) 25.0 (25-40) % Parker % (Auto) 8.9 (3-14) % Eos % (Auto) 3.5 (2-4) % Baso % (Auto) 1.0 (0-2) % Neut # (Auto) 3200 (7292-7539) /uL Lymph # (Auto) 1300 (6058-6877) /uL Parker # (Auto) 500 (0-900) /uL Eos # (Auto) 200 (0-450) /uL Baso # (Auto) 100 (0-100) /uL Sodium 140 (137-145) mmol/L Potassium 4.3 (3.4-5.1) mmol/L Chloride 105 (98-107) mmol/L Carbon Dioxide 27 (22-32) mmol/L BUN 18 (9-20) mg/dL Creatinine 1.07 (0.66-1.25) mg/dL Estimated GFR > 60 (>60) mL/min BUN/Creatinine Ratio 16.8 (6-22) Glucose 160 H (80-110) mg/dL Lactate 1.5 (0.7-2.1) mmol/L Calcium 8.7 (8.4-10.2) mg/dL Total Bilirubin 0.6 (0.2-1.3) mg/dL AST 24 (17-59) IU/L ALT 21 (<50) IU/L Alkaline Phosphatase 77 (38-126) U/L Total Creatine Kinase 93 (55-170) U/L CK-MB (CK-2) TNP CK-MB (CK-2) Rel Index TNP Troponin I < 0.012 (0.01-0.034) ng/mL Total Protein 7.1 (6.3-8.2) g/dL Albumin 4.1 (3.5-5.0) g/dL Globulin 3.0 (1.7-4.1) g/dL Albumin/Globulin Ratio 1.4 (1.0-2.8) Lipase 39 (23-300) U/L Procalcitonin (<0.5) ng/mL Salicylates < 1.0 (<20) mg/dL Acetaminophen < 10 (10-30) ug/mL Ethyl Alcohol < 10 ( - 10) mg/dL 11/03/22 Range/Units 11:49 WBC (4.5-11.0) X10^3/uL RBC (4.5-5.9) X10^6/uL Hgb (13.5-17.5) g/dL Hct (41-53) % MCV (80-100) fL MCH (26-34) PG MCHC (30-36) % RDW (11.6-14.8) % Plt Count (150-400) X10^3/uL Neut % (Auto) (50-75) % Lymph % (Auto) (25-40) % Parker % (Auto) (3-14) % Eos % (Auto) (2-4) % Baso % (Auto) (0-2) % Neut # (Auto) (6569-1799) /uL Lymph # (Auto) (6658-0056) /uL Parker # (Auto) (0-900) /uL Eos # (Auto) (0-450) /uL Baso # (Auto) (0-100) /uL Sodium (137-145) mmol/L Potassium (3.4-5.1) mmol/L Chloride (98-107) mmol/L Carbon Dioxide (22-32) mmol/L BUN (9-20) mg/dL Creatinine (0.66-1.25) mg/dL Estimated GFR (>60) mL/min BUN/Creatinine Ratio (6-22) Glucose (80-110) mg/dL Lactate (0.7-2.1) mmol/L Calcium (8.4-10.2) mg/dL Total Bilirubin (0.2-1.3) mg/dL AST (17-59) IU/L ALT (<50) IU/L Alkaline Phosphatase (38-126) U/L Total Creatine Kinase (55-170) U/L CK-MB (CK-2) CK-MB (CK-2) Rel Index Troponin I (0.01-0.034) ng/mL Total Protein (6.3-8.2) g/dL Albumin (3.5-5.0) g/dL Globulin (1.7-4.1) g/dL Albumin/Globulin Ratio (1.0-2.8) Lipase (23-300) U/L Procalcitonin 0.05 (<0.5) ng/mL Salicylates (<20) mg/dL Acetaminophen (10-30) ug/mL Ethyl Alcohol ( - 10) mg/dL Imaging Data MR brain: Radiologist's Impression: PROCEDURE:? MR STROKE ? INDICATIONS:? word trouble this am now resolved ? TECHNIQUE:? Brain:? Noncontrast axial T1 spin echo, axial T2 fast spin echo, sagittal and axial FLAIR, coronal T2 fast spin echo, axial gradient echo, axial diffusion and ADC through the brain.? MR angiogram:? Noncontrast axial 3D [id number] MR angiogram, with maximum intensity projection reformats of the internal carotid arteries and posterior circulation then performed.? 20 cc ProHance IV contrast. ? COMPARISON:? [facility], CT, CT HEAD/BRAIN WO CON, 11/02/2022, 13:40.? [facility], MR, STROKE PROTOCOL, 05/16/2013, 19:36. ? FINDINGS:? Image quality:? Excellent.? ? BRAIN:? CSF Spaces:? Basal cisterns are patent.? No extra-axial fluid collections.? Ventricles are normal in size and shape.? ? Brain:? No midline shift.? No intracranial bleeds or mass effects.? The brainstem appears normal.? Huynh/white matter interface appears normal.? There are a few foci of T2/FLAIR signal hyperintensities scattered in the white matter, similar.? Diffusion-w eighted images demonstrate no acute ischemic insult.? No chronic ischemic insults.? Normal intravascular flow voids are present.? ? Skull and face:? Calvarium has normal marrow signal.? Orbits appear normal.? ? Sinuses:? Sinuses and mastoids are clear.? ? ? BRAIN MR ANGIOGRAM:? Anterior circulation:? Intracranial internal carotid arteries demonstrate normal size and intraluminal flow signal.? The flow within the paired anterior cerebral arteries is normal and symmetric.? The flow within the middle cerebral arteries is normal and symmetric.? The anterior communicating artery is seen.? No stenoses, occlusions, or aneurysms.? ? Posterior circulation:? The visualized vertebral arteries demonstrate normal caliber, and join to form a normal appearing basilar artery.? 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 The flow within the posterior cerebral arteries is normal and symmetric.? Note is made of normal appearing posterior cerebral arteries.? No stenoses, occlusions, or aneurysms.? ? IMPRESSION:? 1. No acute intracranial infarct. ? 2. No large vessel occlusion.? No mass. ? ? ? Dictated by: Victoriano Hunt M.D. on 11/03/2022 at 15:50 Chest x-ray: Radiologist's Impression: PROCEDURE:? MR STROKE ? INDICATIONS:? word trouble this am now resolved ? TECHNIQUE:? Brain:? Noncontrast axial T1 spin echo, axial T2 fast spin echo, sagittal and axial FLAIR, coronal T2 fast spin echo, axial gradient echo, axial diffusion and ADC through the brain.? MR angiogram:? Noncontrast axial 3D [id number] MR angiogram, with maximum intensity projection reformats of the internal carotid arteries and posterior circulation then performed.? 20 cc ProHance IV contrast. ? COMPARISON:? [facility], CT, CT HEAD/BRAIN WO CON, 11/02/2022, 13:40.? [facility], MR, STROKE PROTOCOL, 05/16/2013, 19:36. ? FINDINGS:? Image quality:? Excellent.? ? BRAIN:? CSF Spaces:? Basal cisterns are patent.? No extra-axial fluid collections.? Ventricles are normal in size and shape.? ? Brain:? No midline shift.? No intracranial bleeds or mass effects.? The brainstem appears normal.? Huynh/white matter interface appears normal.? There are a few foci of T 2/FLAIR signal hyperintensities scattered in the white matter, similar.? Diffusion- weighted images demonstrate no acute ischemic insult.? No chronic ischemic insults.? Normal intravascular flow voids are present.? ? Skull and face:? Calvarium has normal marrow signal.? Orbits appear normal.? ? Sinuses:? Sinuses and mastoids are clear.? ? ? BRAIN MR ANGIOGRAM:? Anterior circulation:? Intracranial internal carotid arteries demonstrate normal size and intraluminal flow signal.? The flow within the paired anterior cerebral arteries is normal and symmetric.? The flow within the middle cerebral arteries is normal and symmetric.? The anterior communicating artery is seen.? No stenoses, occlusions, or aneurysms.? ? Posterior circulation:? The visualized vertebral arteries demonstrate normal caliber, and join to form a normal appearing basilar artery.? 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 The flow within the posterior cerebral arteries is normal and symmetric.? Note is made of normal appearing posterior cerebral arteries.? No stenoses, occlusions, or aneurysms.? ? IMPRESSION:? 1. No acute intracranial infarct. ? 2. No large vessel occlusion.? No mass. ? ? ? Dictated by: Victoriano Hunt M.D. on 11/03/2022 at 15:50 ECG Data Interpretation: Normal sinus rhythm rate 66 DE interval 248 QRS [address] changes no T-w ave inversions MDM Narrative Medical decision making narrative: Patient is 68-year-old male with possible history of early memory problems previous history of TIA presents today with difficulty speaking and just kind of brain fog. No real focal deficits no evidence of toxic problem or infectious etiology. NIH stroke scale of 0 he had a head CT done yesterday which was negative. MRI stroke protocol done today did not show any evidence of stroke or large vessel occlusion. At this time patient can be safely discharged home Discharge Plan Departure Patient Disposition: Home Clinical Impression: Transient cerebral ischemia Instructions: DI for Transient Ischemic Attack Activity Restrictions/Additional Instructions: *You have been diagnosed with possible TIA *What to do: At this time blood work looks good the MRI of your brain does not show any abnormality *Continue to take medications as directed *Follow up with your primary care provider in 2-3 days or call [phone] *Return to ER if you should have increasing confusion numbness tingling weakness chest pain or any new, worsening or concerning symptoms Prescriptions: No Action simvastatin [Zocor] 5 MG tablet 20 mg PO Q DAY Qty: 0 hydrocodone-acetaminophen [Holmes] 5 MG/325 MG tablet 1 tab PO Q4HP PRNQty: 15 0RF tamsulosin [Flomax] 0.4 MG capsule,extended release 24hr 0.4 mg PO Q DAY Qty: 7 0RF tamsulosin [Flomax] 0.4 mg capsule 0.4 mg PO DAILY Qty: 7 0RF hydrocodone-acetaminophen 5-325 mg tablet 1 tab PO Q4-6H PRN (Reason: pain) Qty: 10 0RF ondansetron 4 mg tablet,disintegrating 4 mg PO TID-QID PRN (Reason: nausea and vomiting) Qty: 20 0RF Referrals: Sondra Rubi PA-C [Primary Care Provider] - Stand Alone Forms: Patient Portal/API
--- NOTE | 2022-11-03 11:34 | DI.RAD.S_ITS ---
PROCEDURE: XR CHEST 1V INDICATIONS: chest pain TECHNIQUE: One view of the chest was acquired. COMPARISON: [facility], YOU, XR CHEST 1V, 11/02/2022, 12:49. [facility], CR, XR CHEST 1V, 05/12/2019, 15:09. FINDINGS: Surgical changes and devices: None. Lungs and pleura: Lungs are clear. No pleural effusions or pneumothorax. Mediastinum: Mediastinal contours appear normal. Heart size is normal. Bones and chest wall: No suspicious bony lesions. Overlying soft tissues appear unremarkable. IMPRESSION: No acute cardiopulmonary abnormality. Dictated by: Victoriano Hunt M.D. on 11/03/2022 at 12:22 Approved by: Victoriano Hunt M.D. on 11/03/2022 at 12:23
[2022-11-03 11:57] LABS: Add Manual Diff / Slide Review NO; Basophils Absolute Auto 100 /uL (0-100); Eosinophils Absolute Auto 200 /uL (0-450); Eosinophils Percent Auto 3.5 % (2-4); Hematocrit 41.6 % (41-53); Lymphocytes Absolute Auto 1300 /uL (1100-4500); Mean Corpuscular HGB Conc 33.8 % (30-36); Mean Corpuscular Hemoglobin 32.7 PG (26-34); Mean Corpuscular Volume 96.7 fL (80-100); Monocytes Absolute Auto 500 /uL (0-900); Monocytes Percent Auto 8.9 % (3-14); Neutrophils Absolute Auto 3200 /uL (1500-7000); Neutrophils Percent Auto 61.6 % (50-75); Platelet Count 203 X10^3/uL (150-400); Red Cell Distribution Width 13.4 % (11.6-14.8); White Blood Cell Count 5.1 X10^3/uL (4.5-11.0)
[2022-11-03 12:06] VITALS: PULSE 69; O2SAT 98
[2022-11-03 12:07] VITALS: BP 175/97; PULSE 67; O2SAT 97
[2022-11-03 12:08] LABS: Lactate (Lactic Acid) 1.5 mmol/L (0.7-2.1)
[2022-11-03 12:09] LABS: Alanine Aminotransferase 21 IU/L (<50); Albumin 4.1 g/dL (3.5-5.0); Albumin Globulin Ratio 1.4 (1.0-2.8); Alkaline Phosphatase 77 U/L (38-126); Aspartate Aminotransferase 24 IU/L (17-59); BUN Creatinine Ratio 16.8 (6-22); Bilirubin Total 0.6 mg/dL (0.2-1.3); Blood Urea Nitrogen 18 mg/dL (9-20); Calcium 8.7 mg/dL (8.4-10.2); Carbon Dioxide 27 mmol/L (22-32); Chloride 105 mmol/L (98-107); Creatine Kinase 93 U/L (55-170); Estimated Glomerular Filt Rate > 60 mL/min (>60); Glucose 160 mg/dL (80-110); HEMOLYSIS < 15 (0-50); Lipase 39 U/L (23-300); Potassium 4.3 mmol/L (3.4-5.1); Sodium 140 mmol/L (137-145); Total Protein 7.1 g/dL (6.3-8.2)
--- NOTE | 2022-11-03 12:10 | DI.MRI.S_ITS ---
PROCEDURE: MR STROKE INDICATIONS: word trouble this am now resolved TECHNIQUE: Brain: Noncontrast axial T1 spin echo, axial T2 fast spin echo, sagittal and axial FLAIR, coronal T2 fast spin echo, axial gradient echo, axial diffusion and ADC through the brain. MR angiogram: Noncontrast axial 3D [id number] MR angiogram, with maximum intensity projection reformats of the internal carotid arteries and posterior circulation then performed. 20 cc ProHance IV contrast. COMPARISON: [facility], CT, CT HEAD/BRAIN WO CON, 11/02/2022, 13:40. [facility], MR, STROKE PROTOCOL, 05/16/2013, 19:36. FINDINGS: Image quality: Excellent. BRAIN: CSF Spaces: Basal cisterns are patent. No extra-axial fluid collections. Ventricles are normal in size and shape. Brain: No midline shift. No intracranial bleeds or mass effects. The brainstem appears normal. Huynh/white matter interface appears normal. There are a few foci of T2/FLAIR signal hyperintensities scattered in the white matter, similar. Diffusion-weighted images demonstrate no acute ischemic insult. No chronic ischemic insults. Normal intravascular flow voids are present. Skull and face: Calvarium has normal marrow signal. Orbits appear normal. Sinuses: Sinuses and mastoids are clear. BRAIN MR ANGIOGRAM: Anterior circulation: Intracranial internal carotid arteries demonstrate normal size and intraluminal flow signal. The flow within the paired anterior cerebral arteries is normal and symmetric. The flow within the middle cerebral arteries is normal and symmetric. The anterior communicating artery is seen. No stenoses, occlusions, or aneurysms. Posterior circulation: The visualized vertebral arteries demonstrate normal caliber, and join to form a normal appearing basilar artery. 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 The flow within the posterior cerebral arteries is normal and symmetric. Note is made of normal appearing posterior cerebral arteries. No stenoses, occlusions, or aneurysms. IMPRESSION: 1. No acute intracranial infarct. 2. No large vessel occlusion. No mass. Dictated by: Victoriano Hunt M.D. on 11/03/2022 at 15:50 Approved by: Victoriano Hunt M.D. on 11/03/2022 at 15:59
[2022-11-03 12:21] LABS: Troponin I < 0.012 ng/mL (0.01-0.034)
[2022-11-03 12:28] LABS: Acetaminophen < 10 ug/mL (10-30); Ethanol (ETOH) < 10 mg/dL; Procalcitonin 0.05 ng/mL (<0.5); Salicylate < 1.0 mg/dL (<20)
[2022-11-03 12:30] VITALS: BP 142/81; PULSE 64; RESP 15; O2SAT 96
[2022-11-03] MEDS: LORazepam 2 MG/ML INJ 0.5 MG IV (13:55)
== END 2022-11-03 17:22 | disposition home or self-care (01) ==
PROVIDERS: Emergency Provider Emergency Medicine; PCP Student in an Organized Health Care Education/Training Program
DX: G45.9 Transient cerebral ischemic attack, unspecified (principal); R03.0 Elevated blood-pressure reading, without diagnosis of hypertension; Z86.73 Personal history of transient ischemic attack (TIA), and cerebral infarction without residual deficits
CPT/HCPCS: 36415; 70548; 70553; 71045; 80053; 80320; 80329; 82550; 83605; 83690; 84145; 84484; 85025; 93005; 93010; 96374; 99284; A9579; G0480; J2060

== ENCOUNTER 2023-07-05 15:18 | Observation (INO) | payer MEDICARE, OTHER, SELFPAY ==
[2023-07-05] VITALS (17 sets, daily range): BP systolic 145–190; BP diastolic 87–109; PULSE 60–84; RESP 14–30; TEMP 36.1–36.5; O2SAT 96–99; BMI 28.3; BMI 28.8
--- NOTE | 2023-07-05 15:36 | DI.RAD.S_ITS ---
PROCEDURE: XR CHEST 1V INDICATIONS: chest pain TECHNIQUE: One view of the chest was acquired. COMPARISON: [facility], CR, XR CHEST 1V, 11/03/2022, 11:41. FINDINGS: Surgical changes and devices: None. Lungs and pleura: Lungs are clear. No pleural effusions or pneumothorax. Mediastinum: Mediastinal contours appear normal. Heart size is normal. Bones and chest wall: No suspicious bony lesions. Overlying soft tissues appear unremarkable. IMPRESSION: No acute cardiopulmonary abnormality is seen. Dictated by: Arpit Avila M.D. on 07/05/2023 at 16:32 Approved by: Arpit Avila M.D. on 07/05/2023 at 16:32
[2023-07-05 16:16] LABS: Add Manual Diff / Slide Review NO; Basophils Absolute Auto 100 /uL (0-100); Basophils Percent Auto 0.8 % (0-2); Eosinophils Absolute Auto 200 /uL (0-450); Eosinophils Percent Auto 3.1 % (2-4); Hematocrit 42.6 % (41-53); Hemoglobin 14.4 g/dL (13.5-17.5); Lymphocytes Absolute Auto 2000 /uL (1100-4500); Lymphocytes Percent Auto 27.4 % (25-40); Mean Corpuscular HGB Conc 33.8 % (30-36); Mean Corpuscular Volume 94.8 fL (80-100); Monocytes Absolute Auto 800 /uL (0-900); Monocytes Percent Auto 10.6 % (3-14); Neutrophils Absolute Auto 4300 /uL (1500-7000); Neutrophils Percent Auto 58.1 % (50-75); Platelet Count 246 X10^3/uL (150-400); Red Blood Cell Count 4.49 X10^6/uL (4.5-5.9); Red Cell Distribution Width 13.7 % (11.6-14.8); White Blood Cell Count 7.4 X10^3/uL (4.5-11.0)
--- NOTE | 2023-07-05 16:31 | PC.NURSE ---
Pt reports having a workup last year for chest pain with no discovered cardiac concerns. Pt reports the past month having intermittent chest pain that is short in duration lasting less than 5 minutes. Pt states 2-3 nights ago I had 6x episodes of chest pain durring the night. He denies SOB or dizziness with chest pain. He cannot correlate anything specific which causes the pain.
[2023-07-05 16:32] LABS: Prothrombin Time 11.1 SECONDS (9.4-12.5)
[2023-07-05 16:35] LABS: PTT Partial Thromboplastin Tim 30 SECONDS (25.1-36.5)
[2023-07-05 16:37] LABS: Alanine Aminotransferase 21 IU/L (<50); Albumin 4.3 g/dL (3.5-5.0); Albumin Globulin Ratio 1.2 (1.0-2.8); Alkaline Phosphatase 74 U/L (38-126); Aspartate Aminotransferase 32 IU/L (17-59); BUN Creatinine Ratio 24.1 (6-22); Bilirubin Total 0.6 mg/dL (0.2-1.3); Blood Urea Nitrogen 21 mg/dL (9-20); Calcium 9.7 mg/dL (8.4-10.2); Carbon Dioxide 25 mmol/L (22-32); Chloride 106 mmol/L (98-107); Creatine Kinase 114 U/L (55-170); Estimated Glomerular Filt Rate > 60 mL/min (>60); Globulin 3.7 g/dL (1.7-4.1); Glucose 108 mg/dL (80-110); HEMOLYSIS 19 (0-50); Lipase 42 U/L (23-300); Potassium 4.2 mmol/L (3.4-5.1); Sodium 139 mmol/L (137-145)
[2023-07-05 16:49] LABS: Troponin I 0.067 ng/mL (0.01-0.034)
--- NOTE | 2023-07-05 16:54 | ED.CHESTPAIN ---
HPI - Chest Pain General Chief Complaint: Chest Pain Stated Complaint: Chest pain Time Seen by Provider: 07/05/23 16:54 Source: patient Mode of arrival: Ambulatory Limitations: no limitations Related Data Home Medications Medication Instructions Recorded Confirmed simvastatin 5 mg tablet (Zocor) 20 mg PO Q DAY ##0 11/16/12 Previous Rx's Medication Instructions Recorded hydrocodone 5 mg-acetaminophen 325 1 tab PO Q4HP PRN #15 tabs 07/14/17 mg tablet ([place]) tamsulosin 0.4 mg capsule (Flomax) 0.4 mg PO Q DAY #7 caps 07/14/17 hydrocodone 5 mg-acetaminophen 325 1 tab PO Q4-6H PRN pain #10 tabs 05/01/18 mg tablet ondansetron 4 mg disintegrating 4 mg PO TID-QID PRN nausea and 05/01/18 tablet vomiting #20 tabs tamsulosin 0.4 mg capsule (Flomax) 0.4 mg PO DAILY #7 caps 05/01/18 Allergies Allergy/AdvReac Type Severity Reaction Status Date / Time No Known Drug Allergies Allergy Verified 11/02/22 12:52 Patient History Medical History High cholesterol Hyperlipidemia Kidney stone TIA (transient ischemic attack) Surgical History H/O eye surgery Social History marital status: Smoking Status: Never smoker Smoking Status: Never smoker alcohol intake frequency: 0-2 drinks per day Substance Use Type: marijuana Exam Initial Vital Signs Initial Vital Signs: Vital Signs Temperature 97.7 F 07/05/23 15:31 Pulse Rate 84 07/05/23 15:31 Respiratory Rate 22 07/05/23 15:31 Blood Pressure 190/94 H 07/05/23 15:31 Pulse Oximetry 97 07/05/23 15:31 Oxygen Delivery Method Room Air 07/05/23 15:31 Course Orders Ordered: ED Orders 07/05/23 15:36 XR chest 1V Stat EKG-12 Lead Stat 07/05/23 16:05 Complete Blood Count AUTO DIFF Stat Comprehensive Metabolic Panel Stat Lipase Stat Magnesium Stat PTT Partial Thromboplastin Burt Stat Prothrombin Time INR Stat Troponin & CK Cardiac Panel Stat Vital Signs Vital signs: Vital Signs - 8 hr 07/05/23 15:31 07/05/23 15:42 07/05/23 16:00 Temperature 97.7 F Pulse Rate 84 67 Respiratory Rate 22 Blood Pressure 190/94 H 189/105 H Pulse Oximetry 97 98 Oxygen Delivery Method Room Air 07/05/23 16:00 07/05/23 16:30 07/05/23 16:30 Temperature Pulse Rate 64 61 Respiratory Rate 20 14 Blood Pressure 157/92 H Pulse Oximetry 96 96 Oxygen Delivery Method MDM - Chest Pain Lab Data 07/05/23 16:05 07/05/23 16:05 Labs: Lab Results 07/05/23 Range/Units 16:05 WBC 7.4 (4.5-11.0) X10^3/uL RBC 4.49 L (4.5-5.9) X10^6/uL Hgb 14.4 (13.5-17.5) g/dL Hct 42.6 (41-53) % MCV 94.8 (80-100) fL MCH 32.0 (26-34) PG MCHC 33.8 (30-36) % RDW 13.7 (11.6-14.8) % Plt Count 246 (150-400) X10^3/uL Neut % (Auto) 58.1 (50-75) % Lymph % (Auto) 27.4 (25-40) % Larue % (Auto) 10.6 (3-14) % Eos % (Auto) 3.1 (2-4) % Baso % (Auto) 0.8 (0-2) % Neut # (Auto) 4300 (3618-2990) /uL Lymph # (Auto) 2000 (6513-6664) /uL Larue # (Auto) 800 (0-900) /uL Eos # (Auto) 200 (0-450) /uL Baso # (Auto) 100 (0-100) /uL PT 11.1 (9.4-12.5) SECONDS INR 1.0 (0.9-1.3) APTT 30 (25.1-36.5) SECONDS Sodium 139 (137-145) mmol/L Potassium 4.2 (3.4-5.1) mmol/L Chloride 106 (98-107) mmol/L Carbon Dioxide 25 (22-32) mmol/L BUN 21 H (9-20) mg/dL Creatinine 0.87 (0.66-1.25) mg/dL Estimated GFR > 60 (>60) mL/min BUN/Creatinine Ratio 24.1 H (6-22) Glucose 108 (80-110) mg/dL Calcium 9.7 (8.4-10.2) mg/dL Magnesium 2.0 (1.6-2.3) mg/dL Total Bilirubin 0.6 (0.2-1.3) mg/dL AST 32 (17-59) IU/L ALT 21 (<50) IU/L Alkaline Phosphatase 74 (38-126) U/L Total Creatine Kinase 114 (55-170) U/L Troponin I 0.067 H (0.01-0.034) ng/mL Total Protein 8.0 (6.3-8.2) g/dL Albumin 4.3 (3.5-5.0) g/dL Globulin 3.7 (1.7-4.1) g/dL Albumin/Globulin Ratio 1.2 (1.0-2.8) Lipase 42 (23-300) U/L Discharge Plan Departure Prescriptions: No Action simvastatin [Zocor] 5 MG tablet 20 mg PO Q DAY Qty: 0 hydrocodone-acetaminophen [[place]] 5 MG/325 MG tablet 1 tab PO Q4HP PRNQty: 15 0RF tamsulosin [Flomax] 0.4 MG capsule,extended release 24hr 0.4 mg PO Q DAY Qty: 7 0RF tamsulosin [Flomax] 0.4 mg capsule 0.4 mg PO DAILY Qty: 7 0RF hydrocodone-acetaminophen 5-325 mg tablet 1 tab PO Q4-6H PRN (Reason: pain) Qty: 10 0RF ondansetron 4 mg tablet,disintegrating 4 mg PO TID-QID PRN (Reason: nausea and vomiting) Qty: 20 0RF Referrals: Sondra Rubi PA-C [Primary Care Provider] -
--- NOTE | 2023-07-05 18:10 | ED_ITS ---
HPI - Chest Pain General Chief Complaint: Chest Pain Stated Complaint: Chest pain Time Seen by Provider: 07/05/23 16:54 Source: patient Mode of arrival: Ambulatory Limitations: no limitations History of Present Illness HPI narrative: Patient is a 77-year-old male history of hypertension hyperlipidemia TIA presenting to day with chest discomfort. He reports that in December he had some chest pain. He says that he has since been seen by [facility] cardiology and has had a complete workup. He thought he was having angina however he was told by the business intelligence director he was not. He has had increased episodes over the last week or so. He says the other night he woke up 6 times with cramping on the left side of his chest. He says sometimes he can get up and walk around it goes away sometimes he has to sit and then it goes away. It is really nonradiating but sometimes he has a left scapular discomfort as well. Sometimes it feels like it is reproducible but not always. He denies any shortness of breath. He would another episode day on finally wanted to come get checked out. He reports that he has been exercising as instructed by his business intelligence director. He bought a rowing machine he has been using it for about 2 months. He denies any change in his exercise program. He denies any diaphoresis nausea vomiting or abdominal pain. Related Data Home Medications Medication Instructions Recorded Confirmed aspirin 81 mg capsule 81 mg PO DAILY 07/05/23 07/05/23 atorvastatin 20 mg tablet 20 mg PO DAILY 07/05/23 07/05/23 Allergies Allergy/AdvReac Type Severity Reaction Status Date / Time No Known Drug Allergies Allergy Verified 11/02/22 12:52 Patient History Medical History (Updated 07/05/23 @ 21:58 by Casper Marquez MD) Hyperlipidemia TIA (transient ischemic attack) High cholesterol Kidney stone Surgical History H/O eye surgery Social History marital status: household members: spouse Smoking Status: Never smoker alcohol intake: current Smoking Status: Never smoker alcohol intake frequency: 0-2 drinks per day Substance Use Type: marijuana Exam Initial Vital Signs Initial Vital Signs: Vital Signs Temperature 97.7 F 07/05/23 15:31 Pulse Rate 84 07/05/23 15:31 Respiratory Rate 22 07/05/23 15:31 Blood Pressure 190/94 H 07/05/23 15:31 Pulse Oximetry 97 07/05/23 15:31 Oxygen Delivery Method Room Air 07/05/23 15:31 GENERAL: Alert pleasant well-appearing 77-year-old acute distress HEENT: Head atraumatic,EOMI, pupils reactive, face symmetric, moist mucous membranes CARDIOVASCULAR: Regular rate and rhythm without murmurs, rubs or gallops. Minimally reproducible RESPIRATORY: Breath sounds equal bilaterally, no wheezes rales or rhonchi. ABDOMEN: Soft, nontender. Normoactive bowel sounds all 4 quadrants. No guarding or rebound. EXTREMITIES: Normal range of motion, no clubbing or edema. Neurovascularly intact NEUROLOGICAL: Alert and oriented x4.Normal gait and speech. SKIN: Warm, dry, no laceration, no petechiae, no rashes or lesions. Course Orders Ordered: ED Orders 07/05/23 18:05 EKG-12 Lead Stat 07/05/23 18:10 Trop I [Troponin I] Stat 07/05/23 20:08 Education, smoking cessation ONGOING 07/05/23 21:00 NT-proBNP (BNP-Adult 18+) Routine Troponin I Q6H 07/06/23 02:08 Troponin I Q6H 07/06/23 08:08 Troponin I Q6H Acetaminophen (Acetaminophen 325 Mg Tablet) 650 mg PO Q6H PRN PRN Reason: Fever/Mild Pain (1-3) Calcium Carbonate (Calcium Carbonate 500 Mg Tab) 1,000 mg PO Q4HR PRN PRN Reason: Dyspepsia Ibuprofen (Ibuprofen 600 Mg Tablet) 600 mg PO Q6H PRN PRN Reason: Fever/Mild Pain (1-3) Morphine Sulfate (Morphine 4 Mg/Ml Inj) 3 mg IV Q2HR PRN PRN Reason: Pain, Severe (7-10) Naloxone HCl (Naloxone 0.4 Mg/Ml Vial) 0.2 mg IV Q2MIN PRN PRN Reason: Opiate Reversal Nitroglycerin (Nitroglycerin 0.4 Mg Sl Tab) 0.4 mg SL [id number] PRN PRN Reason: Chest Pain Ondansetron HCl (Ondansetron 4 Mg/2 Ml Inj) 4 mg IV Q8HR PRN PRN Reason: Nausea And Vomiting Pantoprazole Sodium (Pantoprazole Dr 20 Mg Tablet) 20 mg PO 0600 [facility] Sennosides (Sennosides 8.6 Mg Tablet) 17.2 mg PO BEDTIME [facility] Last Admin: 07/05/23 21:53 Dose: Not Given Documented By: CT Discontinued Medications Morphine Sulfate (Morphine 4 Mg/Ml Inj) 3 mg IV Q2HR [facility] Last Admin: 07/06/23 00:32 Dose: Not Given Documented By: Admin: 07/06/23 00:31 Dose: Not Given Documented By: CT Vital Signs Vital signs: Vital Signs - 8 hr 07/05/23 18:10 07/05/23 18:10 07/05/23 18:30 Pulse Rate 62 62 Respiratory Rate 18 16 Blood Pressure 146/107 H Pulse Oximetry 99 98 Oxygen Delivery Method Room Air 07/05/23 18:31 07/05/23 18:31 07/05/23 19:00 Pulse Rate 60 Respiratory Rate 15 Blood Pressure 161/96 H 146/90 H Pulse Oximetry 97 Oxygen Delivery Method 07/05/23 19:00 07/05/23 19:30 07/05/23 19:30 Pulse Rate 62 66 Respiratory Rate 18 17 Blood Pressure 169/102 H Pulse Oximetry 97 97 Oxygen Delivery Method Room Air 07/05/23 19:32 07/05/23 19:32 07/05/23 20:00 Pulse Rate 72 Respiratory Rate 30 H Blood Pressure 167/106 H 166/88 H Pulse Oximetry 97 Oxygen Delivery Method 07/05/23 20:00 Pulse Rate 60 Respiratory Rate 15 Blood Pressure Pulse Oximetry 96 Oxygen Delivery Method MDM - Chest Pain Lab Data 07/05/23 16:05 07/05/23 16:05 Labs: Lab Results 07/05/23 07/05/23 Range/Units 16:05 18:10 WBC 7.4 (4.5-11.0) X10^3/uL RBC 4.49 L (4.5-5.9) X10^6/uL Hgb 14.4 (13.5-17.5) g/dL Hct 42.6 (41-53) % MCV 94.8 (80-100) fL MCH 32.0 (26-34) PG MCHC 33.8 (30-36) % RDW 13.7 (11.6-14.8) % Plt Count 246 (150-400) X10^3/uL Neut % (Auto) 58.1 (50-75) % Lymph % (Auto) 27.4 (25-40) % [place] % (Auto) 10.6 (3-14) % Eos % (Auto) 3.1 (2-4) % Baso % (Auto) 0.8 (0-2) % Neut # (Auto) 4300 (1167-7783) /uL Lymph # (Auto) 2000 (8080-1448) /uL [place] # (Auto) 800 (0-900) /uL Eos # (Auto) 200 (0-450) /uL Baso # (Auto) 100 (0-100) /uL PT 11.1 (9.4-12.5) SECONDS INR 1.0 (0.9-1.3) APTT 30 (25.1-36.5) SECONDS Sodium 139 (137-145) mmol/L Potassium 4.2 (3.4-5.1) mmol/L Chloride 106 (98-107) mmol/L Carbon Dioxide 25 (22-32) mmol/L BUN 21 H (9-20) mg/dL Creatinine 0.87 (0.66-1.25) mg/dL Estimated GFR > 60 (>60) mL/min BUN/Creatinine Ratio 24.1 H (6-22) Glucose 108 (80-110) mg/dL Calcium 9.7 (8.4-10.2) mg/dL Magnesium 2.0 (1.6-2.3) mg/dL Total Bilirubin 0.6 (0.2-1.3) mg/dL AST 32 (17-59) IU/L ALT 21 (<50) IU/L Alkaline Phosphatase 74 (38-126) U/L Total Creatine Kinase 114 (55-170) U/L Troponin I 0.067 H 0.060 H (0.01-0.034) ng/mL Total Protein 8.0 (6.3-8.2) g/dL Albumin 4.3 (3.5-5.0) g/dL Globulin 3.7 (1.7-4.1) g/dL Albumin/Globulin Ratio 1.2 (1.0-2.8) Lipase 42 (23-300) U/L Imaging Data Chest x-ray: Radiologist's Impression: PROCEDURE: XR CHEST 1V INDICATIONS: chest pain TECHNIQUE: One view of the chest was acquired. COMPARISON: [facility], CR, XR CHEST 1V, 11/03/2022, 11:41. FINDINGS: Surgical changes and devices: None. Lungs and pleura: Lungs are clear. No pleural effusions or pneumothorax. Mediastinum: Mediastinal contours appear normal. Heart size is normal. Bones and chest wall: No suspicious bony lesions. Overlying soft tissues appear unremarkable. IMPRESSION: No acute cardiopulmonary abnormality is seen. Dictated by: Arpit Avila M.D. on 07/05/2023 at 16:32 ECG Data Interpretation: EKG 1. Sinus rhythm rate 66 [place] interval 222 QRS [address] changes it is T-wave inversion noted in lead 3 EKG 2. Sinus rhythm rate 62 [place] interval 238 QRS 84 T-wave inversion noted in lead 3 MDM Narrative Medical decision making narrative: Patient is 77-year-old male history of hypertension hyperlipidemia presenting today with chest discomfort with sounds like worsening symptoms ongoing over the last 1 week. Not currently having any significant discomfort now. Blood work has been reviewed clinical significant abnormalities troponin 1. 0.067 with repeat 0.060, trending downward but minimal change. Chest x-ray reviewed negative EKGs reviewed without ischemic changes 1900 Dr. Sheth on-call cardiology updated patient's symptoms test results is aware that patient has been seen by his group. Aware of indeterminate troponins without EKG changes. Recommends patient have a repeat stress test here at [place], if troponins continue to rise or abnormal stress then needs to be transferred. At this time no need to transfer for cardiac catheterizations. Records reviewed received from [facility] does report patient likely has a abnormal stress test with probable CAD. He is supposed to follow up with Cardiology. Dr. Chang updated patient's symptoms test results cardiology recommendations kindly accepts Discharge Plan Departure Patient Disposition: Admitted as Observation Clinical Impression: Chest pain Admit Date/Time: 07/05/23 20:12 Admit Provider: Casper Marquez
[2023-07-05 21:28] LABS: NT-proBNP (BNP-Adult 18+) 129 pg/mL (<450)
[2023-07-05 21:31] LABS: Troponin I 0.045 ng/mL (0.01-0.034)
--- NOTE | 2023-07-05 21:54 | P.HP_ITS ---
History of Present Illness History of Present Illness Date Patient Seen: 07/05/23 Time Patient Seen: 21:54 Chief complaint: Chest pain Narrative: The pt is a 77 yo who has been having intermittent chest pain that is non- radiating for the past 6 months, off/ on. He states that nothing makes it better, is exacerbated by nothing, exercise or eating or rest. Maybe he has very mild diaphoresis with the chest pain but no N/V, and rates the pain that lasts on 3 minutes a 8 out of10. 4 days ago he had 5 episodes and none until today when his made him come to the ER. He locates that pain in the upper left pectoralis muscle. [facility] Medical History (Updated 07/05/23 @ 21:58 by Casper Marquez MD) Hyperlipidemia TIA (transient ischemic attack) High cholesterol Kidney stone Surgical History H/O eye surgery Social History marital status: household members: spouse Smoking Status: Never smoker alcohol intake: current Meds Home Medications and Allergies Home Medications Medication Instructions Recorded Confirmed Type aspirin 81 mg capsule 81 mg PO DAILY 07/05/23 07/05/23 History atorvastatin 20 mg tablet 20 mg PO DAILY 07/05/23 07/05/23 History Allergies Allergy/AdvReac Type Severity Reaction Status Date / Time No Known Drug Allergies Allergy Verified 11/02/22 12:52 Exam Vital Signs (past 8 hours): - 07/05/23 15:31 07/05/23 15:42 07/05/23 16:00 Temperature 97.7 F Pulse Rate 84 67 Respiratory Rate 22 Blood Pressure 190/94 H 189/105 H Pulse Oximetry 97 98 Oxygen Delivery Method Room Air Oxygen Flow Rate 07/05/23 16:00 07/05/23 16:30 07/05/23 16:30 Temperature Pulse Rate 64 61 Respiratory Rate 20 14 Blood Pressure 157/92 H Pulse Oximetry 96 96 Oxygen Delivery Method Oxygen Flow Rate 07/05/23 17:00 07/05/23 17:00 07/05/23 17:30 Temperature Pulse Rate 64 Respiratory Rate 18 Blood Pressure 160/98 H 145/87 H Pulse Oximetry 96 Oxygen Delivery Method Oxygen Flow Rate 07/05/23 17:30 07/05/23 18:00 07/05/23 18:10 Temperature Pulse Rate 61 63 Respiratory Rate 15 14 Blood Pressure 146/107 H Pulse Oximetry 96 97 Oxygen Delivery Method Oxygen Flow Rate 07/05/23 18:10 07/05/23 18:30 07/05/23 18:31 Temperature Pulse Rate 62 62 60 Respiratory Rate 18 16 15 Blood Pressure Pulse Oximetry 99 98 97 Oxygen Delivery Method Room Air Oxygen Flow Rate 07/05/23 18:31 07/05/23 19:00 07/05/23 19:00 Temperature Pulse Rate 62 Respiratory Rate 18 Blood Pressure 161/96 H 146/90 H Pulse Oximetry 97 Oxygen Delivery Method Room Air Oxygen Flow Rate 07/05/23 19:30 07/05/23 19:30 07/05/23 19:32 Temperature Pulse Rate 66 72 Respiratory Rate 17 30 H Blood Pressure 169/102 H Pulse Oximetry 97 97 Oxygen Delivery Method Oxygen Flow Rate 07/05/23 19:32 07/05/23 20:00 07/05/23 20:00 Temperature Pulse Rate 60 Respiratory Rate 15 Blood Pressure 167/106 H 166/88 H Pulse Oximetry 96 Oxygen Delivery Method Oxygen Flow Rate 07/05/23 20:30 07/05/23 20:30 07/05/23 21:39 Temperature 96.9 F L Pulse Rate 62 70 Respiratory Rate 20 18 Blood Pressure 154/95 H 157/109 H Pulse Oximetry 97 99 Oxygen Delivery Method Oxygen Flow Rate 0 Oxygen Delivery Method Room Air Oxygen Flow Rate 0 Const General: cooperative and healthy appearing Resp Auscultation: clear to auscultation bilaterally Cardio Rate: regular rate Rhythm: regular rhythm Skin General: no rashes or lesions noted Extrem General: no clubbing, cyanosis or edema Objective Labs 07/05/23 16:05 07/05/23 16:05 Labs: Laboratory Results - last 24 hr 07/05/23 07/05/23 07/05/23 16:05 18:10 21:00 WBC 7.4 RBC 4.49 L Hgb 14.4 Hct 42.6 MCV 94.8 MCH 32.0 MCHC 33.8 RDW 13.7 Plt Count 246 Neut % (Auto) 58.1 Lymph % (Auto) 27.4 [place] % (Auto) 10.6 Eos % (Auto) 3.1 Baso % (Auto) 0.8 Neut # (Auto) 4300 Lymph # (Auto) 2000 [place] # (Auto) 800 Eos # (Auto) 200 Baso # (Auto) 100 PT 11.1 INR 1.0 APTT 30 Sodium 139 Potassium 4.2 Chloride 106 Carbon Dioxide 25 BUN 21 H Creatinine 0.87 Estimated GFR > 60 BUN/Creatinine Ratio 24.1 H Glucose 108 Calcium 9.7 Magnesium 2.0 Total Bilirubin 0.6 AST 32 ALT 21 Alkaline Phosphatase 74 Total Creatine Kinase 114 Troponin I 0.067 H 0.060 H 0.045 H NT-Pro-B Natriuret Pep 129 Total Protein 8.0 Albumin 4.3 Globulin 3.7 Albumin/Globulin Ratio 1.2 Lipase 42 Assessment & Plan Assessment and plan (1) Chest pain: Status: Acute Plan Will admit to the hospitalist service, I have discussed the pt's case and symptoms with the ER provider and agree with the decision for admission. Will monitor serial troponins, on telemetry. The ER provider discussed the elevated troponin in the ER of 0.[address] Sheth recommended admission and transfer if the troponin increases otherwise f/up in cardiology clinic as an outpt. The pt did have a stress test that was abnormal in October of 2022 and was told to f/up with cardiology for a cath which has not taken place yet.
[2023-07-06 00:35] VITALS: BP 118/77; PULSE 65; RESP 18; TEMP 36.4; O2SAT 98
--- NOTE | 2023-07-06 01:01 | PC.NURSE ---
Assumed care from Mesha OROPEZA at 0100.
[2023-07-06 02:38] LABS: Troponin I 0.039 ng/mL (0.01-0.034)
[2023-07-06 04:35] VITALS: BP 108/72; PULSE 66; RESP 16; TEMP 36.5; O2SAT 96
[2023-07-06] MEDS: PANTOPRAZOLE DR 20 MG TABLET PO (06:11)
[2023-07-06 08:00] VITALS: BP 128/80; PULSE 72; RESP 16; TEMP 36.1; O2SAT 95
--- NOTE | 2023-07-06 08:41 | P.DS_ITS ---
History of Present Illness History of Present Illness Date Patient Seen: 07/06/23 Time Patient Seen: 08:41 Chief complaint: Chest pain Narrative: Per admitting provider, The pt is a 77 yo who has been having intermittent chest pain that is non- radiating for the past 6 months, off/ on. He states that nothing makes it better, is exacerbated by nothing, exercise or eating or rest. Maybe he has very mild diaphoresis with the chest pain but no N/V, and rates the pain that lasts on 3 minutes a 8 out of10. 4 days ago he had 5 episodes and none until today when his made him come to the ER. He locates that pain in the upper left pectoralis muscle. Discharge Providers Provider Date of admission: 07/05/23 20:12 Discharge Date: 07/06/23 Primary care physician: Sondra Rubi PA-C Discharge provider: Johnnie Dao DO Summary Hospital Course Discharge Diagnosis: 1. Chest pain Hospital Course: This is a 77 year old male with prior known abnormal stress testing per report who presented with chest pain. He was admitted for serial troponins per cardiology recommendations which continued to downtrend to normal. He was instructed to follow up with outpatient cardiology for ongoing management after ACS rule out. His symptoms had resolved during the course of his stay. He had no abnormal arrythmias on telemetry monitoring. Time Spent with Patient Time spent: Less than 30 minutes Exam Vital Signs (past 8 hours): - 07/06/23 04:35 07/06/23 04:35 Temperature 97.7 F Pulse Rate 66 Respiratory Rate 16 Blood Pressure 108/72 Pulse Oximetry 96 96 Oxygen Flow Rate 0 Oxygen Delivery Method Room Air Oxygen Flow Rate 0 Narrative Exam Narrative: Gen: NAD CV RRR Pulm: no respiratory distress Ext: no edema Neuro: no focal deficits, ambulating without assistance Objective Labs 07/05/23 16:05 07/05/23 16:05 Labs: Laboratory Results - last 24 hr 07/05/23 07/05/23 07/05/23 16:05 18:10 21:00 WBC 7.4 RBC 4.49 L Hgb 14.4 Hct 42.6 MCV 94.8 MCH 32.0 MCHC 33.8 RDW 13.7 Plt Count 246 Neut % (Auto) 58.1 Lymph % (Auto) 27.4 [place] % (Auto) 10.6 Eos % (Auto) 3.1 Baso % (Auto) 0.8 Neut # (Auto) 4300 Lymph # (Auto) 2000 [place] # (Auto) 800 Eos # (Auto) 200 Baso # (Auto) 100 PT 11.1 INR 1.0 APTT 30 Sodium 139 Potassium 4.2 Chloride 106 Carbon Dioxide 25 BUN 21 H Creatinine 0.87 Estimated GFR > 60 BUN/Creatinine Ratio 24.1 H Glucose 108 Calcium 9.7 Magnesium 2.0 Total Bilirubin 0.6 AST 32 ALT 21 Alkaline Phosphatase 74 Total Creatine Kinase 114 Troponin I 0.067 H 0.060 H 0.045 H NT-Pro-B Natriuret Pep 129 Total Protein 8.0 Albumin 4.3 Globulin 3.7 Albumin/Globulin Ratio 1.2 Lipase 42 07/06/23 02:06 WBC RBC Hgb Hct MCV MCH MCHC RDW Plt Count Neut % (Auto) Lymph % (Auto) [place] % (Auto) Eos % (Auto) Baso % (Auto) Neut # (Auto) Lymph # (Auto) [place] # (Auto) Eos # (Auto) Baso # (Auto) PT INR APTT Sodium Potassium Chloride Carbon Dioxide BUN Creatinine Estimated GFR BUN/Creatinine Ratio Glucose Calcium Magnesium Total Bilirubin AST ALT Alkaline Phosphatase Total Creatine Kinase Troponin I 0.039 H NT-Pro-B Natriuret Pep Total Protein Albumin Globulin Albumin/Globulin Ratio Lipase PFSH Medical History (Updated 07/05/23 @ 21:58 by Casper Marquez MD) Hyperlipidemia TIA (transient ischemic attack) High cholesterol Kidney stone Surgical History H/O eye surgery Social History marital status: household members: spouse Smoking Status: Never smoker alcohol intake: current Discharge Plan Discharge Plan Patient Disposition: Home Provider Discharge Comment: You were admitted to the hospital for observation to see if you were having a heart attack. You were not. Please follow up with cardiology to discuss ongoing management of prior abnormal stress test. Discharge orders & Medications Prescriptions: Continued atorvastatin 20 mg tablet 20 mg PO DAILY aspirin 81 mg Capsule 81 mg PO DAILY Follow up/Referrals: Sondra Rubi PA-C [Primary Care Provider] - Diet/Activity/Treatments Diet: Diet as Tolerated and Regular Activity: As tolerated, no restrictions Visit Report/Discharge Packet Stand Alone Forms: Patient Portal/API, Stroke Signs & Symptoms Discharge Data Primary Care Provider: Sondra Rubi Attending Provider: Casper Marquez Admzully Date/Time: 07/05/23 20:12
[2023-07-06 09:50] LABS: Troponin I 0.024 ng/mL (0.01-0.034)
--- NOTE | 2023-07-06 13:44 | CM.DANOTE ---
Patient is a 77 yo male who was admitted on 07/05/23 for Chest Pain r/o. Pt has M[employer] and [employer] for insurance and his PCP is Dr. Sondra Rider. EMR was reviewed. Per MD, based on Hospital Education Coordinator Consult recommendation is to admit pt and monitor his trops. Per MD, pt's trops have trended and pt now medically stable to d/c with outpt f/u and no barriers to discharge. Pt was discharging via spouse POV right as Multidisciplinary Rounds ended and pt confirms he is agreeable to d/c home now with his and no anticipated needs at this time. Pt comfortable with outpt f/u with Cardiology. Per RN, pt very independent and active and no concerns noted. Plan: Patient discharged home early this morning via spouse POV and discharge instructions given and no further SW needs at this time. TRENT Cr Discharge Planning/Care Management Advanced directive, confirm from FAMILY Start: 07/05/23 21:54 Freq: Q24H Status: Discharge Protocol: Document 07/05/23 21:13 CT (Rec: 07/05/23 23:29 CT [id number]) Advance Directive, confirm on record Time 21:13 Person contacted Patient Copy received No CM Discharge Assessment Start: 07/06/23 13:43 Freq: Status: Active Protocol: Document 07/06/23 13:43 BF (Rec: 07/06/23 13:44 BF [id number]) Discharge Planning Assessment Assigned Surveyor Helper Rod TRENT Triplett DPOA/Assigned Designee Name spouse Jessi Contact Information [phone] Advance Directives? Yes Advance Directives on File Yes History Provided By Patient,Medical Record Has Patient been admitted in last 30 No days? Prior Living Arrangements House Household Members spouse Type of transporation used prior to Drives own vehicle admit Independent with ADL's Yes Is patient alert and oriented? Yes Caregiver for Another No Barriers to Discharge No Discharge Plan Home Transportation Arrangement spouse bedside for transport Referrals Initiated None needed Whiteboard Updated in Patient Room with Yes name and ext. # of Surveyor Helper Rod Review Status In Process Please Provide Date Initial DC 07/06/23 Assessment Was Performed Next Review Type Continued Stay Review
== END 2023-07-06 10:18 | disposition home or self-care (01) ==
LOC: ED 20:00 → AC 20:13
PROVIDERS: Emergency Medicine; Admitting Provider Internal Medicine; Emergency Provider Emergency Medicine; PCP Student in an Organized Health Care Education/Training Program; Referring Provider Emergency Medicine; Visit Provider Internal Medicine
DX: R07.9 Chest pain, unspecified (principal); R79.89 Other specified abnormal findings of blood chemistry; E78.5 Hyperlipidemia, unspecified
CPT/HCPCS: 36415; 71045; 80053; 82550; 83690; 83735; 83880; 84484; 85025; 85610; 85730; 93005; 93010; 99284; 99285; G0378

== ENCOUNTER 2024-04-10 14:17 | Emergency (ER) | payer MEDICARE, OTHER, SELFPAY ==
[2023-07-05 21:45] VITALS: BMI 28.8
[2024-04-10] VITALS (10 sets, daily range): BP systolic 131–162; BP diastolic 79–97; PULSE 51–61; RESP 14–22; TEMP 36.1; O2SAT 96–99; BMI 27.9
--- NOTE | 2024-04-10 | DI.RAD.S_ITS ---
PROCEDURE: XR SHOULDER RT MIN 2V INDICATIONS: verbal order TECHNIQUE: 2 views of the shoulder were acquired. COMPARISON: None. FINDINGS: Bones: No fractures or dislocations. Severe acromioclavicular joint degeneration. No suspicious bony lesions. Visualized ribs appear intact. Soft tissues: No suspicious soft tissue calcifications. IMPRESSION: No acute fracture or dislocation. Dictated by: Michael Matthew M.D. on 04/10/2024 at 15:30 Approved by: Michael Matthew M.D. on 04/10/2024 at 15:30
[2024-04-10] MEDS: HYDROMORPHONE 0.5 MG INJ IV (15:11)
[2024-04-10] MEDS: SODIUM CHLORIDE 0.9% 1,000 ML 1000 ML IV (15:41)
--- NOTE | 2024-04-10 16:01 | ED.FALL ---
HPI - Fall General Chief Complaint: Fall Stated Complaint: Might have broken his right shoulder Time Seen by Provider: 04/10/24 14:26 Source: patient Mode of arrival: Ambulatory History of Present Illness HPI Narrative: 78-year-old gentleman with a history of coronary artery disease, recent stent placement, anticoagulated, hyperlipidemia had a mechanical fall on some outside stairs were wet from the rain landed on his right elbow and is complaining of upper humerus pain. He has limited range of motion of the shoulder. No other complaints. Related Data Home Medications Medication Instructions Recorded Confirmed aspirin 81 mg capsule 81 mg PO DAILY 07/05/23 07/05/23 atorvastatin 20 mg tablet 20 mg PO DAILY 07/05/23 07/05/23 Previous Rx's Medication Instructions Recorded oxycodone-acetaminophen 5 mg-325 1 tab PO Q6H PRN pain #10 tabs 04/10/24 mg tablet Allergies Allergy/AdvReac Type Severity Reaction Status Date / Time No Known Drug Allergies Allergy Verified 04/10/24 14:21 Review of Systems Review of Systems Narrative: Pertinent positive and negative findings as per HPI Patient History Medical History Hyperlipidemia TIA (transient ischemic attack) High cholesterol Kidney stone Surgical History H/O eye surgery Social History marital status: household members: spouse Smoking Status: Never smoker alcohol intake: current Smoking Status: Never smoker alcohol intake frequency: 0-2 drinks per day Substance Use Type: marijuana Exam Initial Vital Signs Initial Vital Signs: Vital Signs Temperature 97.0 F L 04/10/24 14:21 Pulse Rate 61 04/10/24 14:21 Respiratory Rate 16 04/10/24 14:21 Blood Pressure 135/79 04/10/24 14:21 Pulse Oximetry 99 04/10/24 14:21 Oxygen Delivery Method Room Air 04/10/24 14:21 General: Alert appropriate in no acute distress Respiratory: Able to speak in full sentences, no obvious respiratory distress Skin: No obvious rashes, warm and dry Neurologic: Grossly intact no obvious asymmetries or abnormalities Psych: appropriate insight and affect, cooperative Musculoskeletal: Right shoulder with obvious deformity, no limited range of motion but neurovascularly intact distally. No abrasions or obviously open fractures. Range of motion at the elbow and the wrist is appropriate Course Orders Ordered: Discontinued Medications Hydromorphone HCl (Hydromorphone 0.5 Mg Inj) 0.5 mg IV NOW ONE Stop: 04/10/24 14:42 Last Admin: 04/10/24 15:11 Dose: 0.5 mg Documented By: RB Sodium Chloride (Normal Saline 0.9%) 1,000 mls @ 1,000 mls/hr IV BOLUS ONE Stop: 04/10/24 15:42 Last Admin: 04/10/24 15:41 Dose: 1,000 mls/hr Documented By: SB Propofol (Propofol 200 Mg/20 Ml Vial) 200 mg IV NOW ONE Stop: 04/10/24 14:42 Last Admin: 04/10/24 16:16 Dose: Not Given Documented By: SB Vital Signs Vital signs: Vital Signs - 8 hr 04/10/24 14:21 04/10/24 15:27 04/10/24 15:29 Temperature 97.0 F L Pulse Rate 61 54 L Respiratory Rate 16 Blood Pressure 135/79 151/97 H Pulse Oximetry 99 Oxygen Delivery Method Room Air 04/10/24 15:29 04/10/24 15:30 04/10/24 15:42 Temperature Pulse Rate 54 L 53 L Respiratory Rate 22 Blood Pressure 131/79 Pulse Oximetry 99 98 Oxygen Delivery Method Room Air 04/10/24 15:42 04/10/24 16:00 04/10/24 16:01 Temperature Pulse Rate 52 L 51 L 53 L Respiratory Rate 17 17 14 Blood Pressure Pulse Oximetry 96 96 96 Oxygen Delivery Method Room Air Room Air 04/10/24 16:01 Temperature Pulse Rate Respiratory Rate Blood Pressure 162/85 H Pulse Oximetry Oxygen Delivery Method MDM - Fall MDM Narrative Medical decision making narrative: 78-year-old gentleman who had a mechanical fall down some outside steps landed on his right shoulder. Was initially asked by x-ray technicians to see him in the radiology suite, humerus x-rays had initially been ordered by nursing staff and he clearly had a dislocated shoulder. Exam was done at that time. X-rays of the shoulder were completed. When I went to follow up in room 5, the shoulder was back in place. I suspect that the manipulation required to do the shoulder views was all that was required to relocate the shoulder. Second evaluation shows much improved range of motion and pain is almost entirely resolved. He is placed in a sling and is neurovascularly intact was placement. We will give him a prescription for oxycodone to fill if he needs it. Recommended Tylenol and ibuprofen otherwise. Recommend follow up with [facility] regarding the right shoulder dislocation. Given the fact that it went in so easily I am concerned that there may be rotator cuff tear and he may need additional imaging follow up. At this point no additional imaging or manipulation is required. He is safe for discharge Discharge Plan Departure Patient Disposition: Home Clinical Impression: Dislocated shoulder Qualifiers: Encounter type: initial encounter Laterality: right Qualified Code(s): S43.004A - Unspecified dislocation of right shoulder joint, initial encounter Instructions: DI for Shoulder Dislocation Activity Restrictions/Additional Instructions: Thank you for coming in today Your fall today led to a shoulder dislocation on the right. With the manipulation required to get the appropriate imaging done, it looks like the radiology techs were able to relocate your shoulder. This is wonderful. You do not need a sedation to get the shoulder back into place. This is also why it has no longer hurting as much. Please use the sling for support and to prevent it dislocated again. The fact that it went back in so easily concerns me that you may have torn the rotator cuff. Please schedule an appointment with [facility], call [phone], explain that you are in the emergency department, had a right shoulder dislocation and need to be seen for further evaluation and definitive treatment Using 400 mg of ibuprofen (2 spcs-gmx-vtyulla pills) and 1 Tylenol every 6 hours can be very helpful in controlling pain. I have given you a prescription for Percocet. This is a narcotic and for severe pain you can take 2 ibuprofen and 1 Percocet. If you feel that you do not need a narcotic pain medication you do not need to fill this prescription If you find that you are getting worse or develop any new symptoms, please feel free to return to the emergency department for further evaluation. Prescriptions: New oxycodone-acetaminophen 5-325 mg tablet 1 tab PO Q6H PRN (Reason: pain) Qty: 10 0RF No Action atorvastatin 20 mg tablet 20 mg PO DAILY aspirin 81 mg Capsule 81 mg PO DAILY Referrals: Mariano Paris MD [Primary Care Provider] - Stand Alone Forms: Patient Portal/API/Survey
== END 2024-04-10 16:42 | disposition home or self-care (01) ==
PROVIDERS: Emergency Provider Emergency Medicine; PCP Family Medicine
DX: S43.004A Unspecified dislocation of right shoulder joint, initial encounter (principal); W18.30XA Fall on same level, unspecified, initial encounter; Z95.5 Presence of coronary angioplasty implant and graft; Z79.01 Long term (current) use of anticoagulants
CPT/HCPCS: 36415; 73030; 96361; 96374; 99284; J1171

== ENCOUNTER → 2024-11-29 08:46 | Outpatient (CLI) | payer MEDICARE, OTHER, SELFPAY ==
[2023-07-05 21:45] VITALS: BMI 28.8
--- NOTE | 2024-11-29 08:54 | DI.RAD.S_ITS ---
PROCEDURE: XR KNEE LT 3V INDICATIONS: LEFT KNEE PAIN TECHNIQUE: 3 views of the knee were acquired. COMPARISON: [facility], CR, XR KNEE LT 1TO2V, 11/17/2019, 12:10. [facility], CR, XR KNEE 3 VIEWS LEFT, 09/25/2024, 15:19. FINDINGS: Bones: No fractures or dislocations. No suspicious bony lesions. Tricompartmental arthritic change most severe medially. Soft tissues: Mild joint effusion. No suspicious soft tissue calcifications. IMPRESSION: Tricompartmental change relatively stable. Effusion. No visualized acute fracture or dislocation. However, if clinical concern and/or pain persist, short interval imaging followup in 7-10 days is recommended, as occult injury cannot be definitively excluded. Dictated by: Marci Dexter M.D. on 11/29/2024 at 16:59 Approved by: Marci Dexter M.D. on 11/29/2024 at 17:00
== END ==
LOC: RAD 08:50
PROVIDERS: PCP Nurse Practitioner Family; Referring Provider Nurse Practitioner Family; Visit Provider Nurse Practitioner Family
DX: M25.462 Effusion, left knee (principal); M25.562 Pain in left knee
CPT/HCPCS: 73562

== ENCOUNTER 2025-01-03 10:27 | Emergency (ER) | payer MEDICARE, OTHER, SELFPAY ==
[2023-07-05 21:45] VITALS: BMI 28.8
[2025-01-03] VITALS (17 sets, daily range): BP systolic 150–198; BP diastolic 79–101; PULSE 51–65; RESP 13–26; TEMP 37.1; O2SAT 96–100; BMI 27.9
--- NOTE | 2025-01-03 10:36 | DI.CT.S_ITS ---
PROCEDURE: CT HEAD/BRAIN WO CON INDICATIONS: tia TECHNIQUE: Noncontrast 4.5 mm thick angled axial sections acquired from the foramen magnum to the vertex, with coronal and sagittal reformats. For radiation dose reduction, the following was used: automated exposure control, adjustment of mA and/or kV according to patient size. COMPARISON: [facility], CT, CT HEAD WITHOUT CONTRAST ANTICOAGULATED TRAUMA, 09/25/2024, 15:34. [facility], CT, CT HEAD/BRAIN WO CON, 11/02/2022, 13:40. [facility], CT, CT HEAD/BRAIN WO CON, 05/12/2019, 15:27. FINDINGS: Image quality: Diagnostic. CSF spaces: Basal cisterns are patent. No extra-axial fluid collections. The ventricles are symmetric in size and shape. Brain: No acute intracranial hemorrhage or mass effect. There is cerebral volume loss, with resultant ventricular and sulcal prominence. There are periventricular and deep white matter chronic small vessel ischemic changes. There is intracranial internal carotid artery atherosclerosis. Skull and face: Calvarium and visualized facial bones appear intact, without suspicious lesions. Sinuses: Mucosal thickening in the anterior posterior ethmoid air cells and the sphenoid sinuses. The remaining visualized paranasal sinuses and the mastoid air cells are clear. IMPRESSION: No acute intracranial pathology. Approved by: James Chisholm M.D. on 01/03/2025 at 11:26
--- NOTE | 2025-01-03 10:37 | DI.CT.S_ITS ---
PROCEDURE: CT ANGIO HEAD AND NECK INDICATIONS: tia TECHNIQUE: After the administration of intravenous contrast, 1 mm thick sections acquired from the aortic arch through the [employer] [place]. 3-dimensional lklzuzd-rkydljnjq-cftdwvrcjd (MIP) and/or volume rendering reformats were acquired of the central intracranial vasculature and neck separately. For radiation dose reduction, the following was used: automated exposure control, adjustment of mA and/or kV according to patient size. COMPARISON: [facility], CT, CT ANGIO HEAD AND NECK, 11/04/2022, 15:09. FINDINGS: Image quality: Diagnostic. Cerebral CT Angiogram: Internal carotid arteries: No acute findings. Intracranial ICA are patent with no significant stenosis. No occlusion. No aneurysm. Anterior cerebral arteries: Unremarkable. No significant stenosis. No occlusion. No aneurysm. Middle cerebral arteries: Unremarkable. No significant stenosis. No occlusion. No aneurysm. Posterior cerebral arteries: type origin of the left INSTRUMENT CHECKER, a normal anatomic variant. No significant stenosis. No occlusion. No aneurysm. Basilar artery: Unremarkable. No significant stenosis. No occlusion. No aneurysm. Vertebral arteries: Unremarkable as visualized. Dural venous sinuses: Unremarkable given phase of enhancement. Other: Arterial phase appearance of the brain parenchyma is unremarkable. Neck CT Angiogram: Internal carotid arteries: Unremarkable. No significant stenosis. No dissection or occlusion. Common carotid arteries: Unremarkable. No significant stenosis. No dissection or occlusion. External carotid arteries: Unremarkable. No occlusion. Vertebral arteries: Unremarkable. No significant stenosis. No dissection or occlusion. Aortic Arch and Mediastinum: Partially visualized aortic arch unremarkable without evidence of aneurysm. Origins of the great vessels unremarkable. Other: Arterial phase soft tissues of the neck and chest are unremarkable. IMPRESSION: No significant intracranial arterial abnormality is seen. No significant abnormality is seen within the arteries of the neck. Any quantitative measurements of stenosis were performed using NASCET criteria. Approved by: James Chisholm M.D. on 01/03/2025 at 11:31
--- NOTE | 2025-01-03 10:56 | ED.NEUROSD ---
HPI - Neuro Symptoms/Deficit General Chief Complaint: Neuro Symptoms/Deficit Stated Complaint: Per patient , might be having a stroke Time Seen by Provider: 01/03/25 10:31 Source: patient Mode of arrival: Ambulatory History of Present Illness HPI Narrative: 79-year-old gentleman with a history of hyperlipidemia, prior TIAs, coronary stents baby aspirin daily who went to bed feeling normal last night at 10:30 p.m.. He awoke at 7:30 a.m. this morning and felt that he was more dizzy, had more confusion some nausea and describes a weird feeling in his head and throughout his torso and abdomen?. His notes that he was much more forgetful than usual this morning. Currently has a Zio patch in place On Anticoagulants: No (asa) Related Data Home Medications ?Medication ?Instructions ?Recorded ?Confirmed aspirin 81 mg capsule 81 mg PO DAILY 07/05/23 07/05/23 atorvastatin 20 mg tablet 20 mg PO DAILY 07/05/23 07/05/23 Previous Rx's ?Medication ?Instructions ?Recorded oxycodone-acetaminophen 5 mg-325 1 tab PO Q6H PRN pain #10 tabs 04/10/24 mg tablet Allergies Allergy/AdvReac Type Severity Reaction Status Date / Time No Known Drug Allergies Allergy Verified 01/03/25 10:35 Review of Systems Review of Systems Narrative: Pertinent positive and negative findings as per HPI Hematologic/Lymphatic On Anticoagulants: No (asa) Patient History Medical History Hyperlipidemia TIA (transient ischemic attack) High cholesterol Kidney stone Surgical History H/O eye surgery Social History marital status: household members: spouse Smoking Status: Unknown if ever smoked alcohol intake: current Smoking Status: Unknown if ever smoked alcohol intake frequency: 0-2 drinks per day Exam Initial Vital Signs Initial Vital Signs: Vital Signs Temperature 98.7 F 01/03/25 10:28 Pulse Rate 60 01/03/25 10:28 Respiratory Rate 17 01/03/25 10:28 Blood Pressure 178/101 H 01/03/25 10:28 Pulse Oximetry 100 01/03/25 10:28 Oxygen Delivery Method Room Air 01/03/25 10:28 General: In no acute distress, able to speak in complete sentences HEENT: Moist mucous membranes, normal sclera with reactive pupils, Respiratory: Lungs are clear to auscultation, no wheezing no rales no rhonchi. Full and symmetrical air movement Cardiac: Regular rate and rhythm no murmurs no bruits Abdomen: Soft, nontender, no rebound or guarding, no flank pain Skin: Warm and dry, no rashes Neurologic: Grossly neurologically intact with no obvious asymmetries or abnormalities. NIH= 0 Extremities: No trauma, well perfused Psych: Cooperative, appropriate insight and affect Course Orders Ordered: ED Orders 01/03/25 10:36 CT head/brain wo con Stat 01/03/25 10:37 CT angio head and neck Stat COVID19 -Nasal RAPID Stat Complete Blood Count AUTO DIFF Stat Urinalysis and Microscopic Stat Urine Drug Screen, Rapid Stat EKG-12 Lead Stat 01/03/25 10:38 Comprehensive Metabolic Panel Stat Ethanol (ETOH) Stat PTT Partial Thromboplastin Burt Stat Prothrombin Time INR Stat Troponin & CK Cardiac Panel Stat Vital Signs Vital signs: Vital Signs - 8 hr 01/03/25 10:28 01/03/25 10:33 Temperature 98.7 F Pulse Rate 60 60 Respiratory Rate 17 13 Blood Pressure 178/101 H 178/101 H Pulse Oximetry 100 99 Oxygen Delivery Method Room Air MDM - Neuro Symptoms/Deficit Lab Data 01/03/25 10:38 01/03/25 10:38 Labs: Lab Results 01/03/25 Range/Units 10:38 POC Whole Bld Glucose 111 H (70-99) mg/dL MDM Narrative Medical decision making narrative: CC: Dizziness confusion upon awakening this morning Complicating co-morbidities: Prior TIAs, hyperlipidemia, coronary artery disease Data collected from: patient, Medical records reviewed: Discharge summary from July 06, 2023 is reviewed Differential considered: TIA, infection, poor sleep, medication changes Exam documented above, pertinent findings include: Patient seems to be back on track at this point. Exam is benign. NIH score = 0 Lab Test results independently reviewed as above. Pertinent findings: CBC is unremarkable Chemistries are reassuring Troponin is undetectable Alcohol is undetectable COVID is not detected Imaging studies independently reviewed: CT scan of the head shows no acute intracranial pathology CT angiogram of the head and neck is reassuring Discussion: 79-year-old gentleman woke up feeling a bit off this morning. Complained that his left leg was slightly weak when he awoke. All symptoms have since resolved. Blood work is reassuring. CT scan of the head and CT angiogram of the head and neck did not suggest any acute findings. No evidence of infection, acute coronary syndrome or stroke. Patient states that he is back to his baseline. Shared decision-making we discharged home. It sounds like he was scheduled to have an outpatient head and angiogram of the head and neck CT study. We will give him copies of all blood work done today as well as CT results today to share with his physician with whom he has a follow up appointment in 48 hours. Asked him to continue his daily baby aspirin and he is safe for discharge Discharge Plan Departure Patient Disposition: Home Clinical Impression: Dizziness, Confusion Instructions: DI for Transient Ischemic Attack Activity Restrictions/Additional Instructions: Thank you for coming in today It is a little frightening when your brain does not seem to be working the way that it is supposed to. The weird sensation through body I do not have a complete explanation for. The dizziness and confusion seems to have resolved. I am not seeing any evidence of infection, electrolyte abnormalities, acute kidney problems We did do a CT scan of your brain as well as a CT angiogram of your head and neck, looking at all of the blood vessels from the top of your head to the top of your heart. Both of these studies were quite reassuringly normal I have given you copies of your blood work as well as the CT scan results to share with your optimum doctor with your follow up appointment scheduled on Wednesday. If you find that you are getting worse or develop any new symptoms, please feel free to return to the emergency department for further evaluation. Prescriptions: No Action oxycodone-acetaminophen 5-325 mg tablet 1 tab PO Q6H PRN (Reason: pain) Qty: 10 0RF atorvastatin 20 mg tablet 20 mg PO DAILY aspirin 81 mg Capsule 81 mg PO DAILY Referrals: Nadine Franks ARNP [Primary Care Provider, Nursing] Stand Alone Forms: Patient Portal/API
[2025-01-03 10:59] LABS: INR 1.0 (0.9-1.3); Prothrombin Time 11.0 SECONDS (9.4-12.5)
[2025-01-03 11:02] LABS: PTT Partial Thromboplastin Tim 29 SECONDS (25.1-36.5)
[2025-01-03 11:05] LABS: Alanine Aminotransferase 27 IU/L (<50); Albumin 4.6 g/dL (3.5-5.0); Albumin Globulin Ratio 1.4 (1.0-2.8); Alkaline Phosphatase 70 U/L (38-126); Blood Urea Nitrogen 18 mg/dL (9-20); Calcium 9.1 mg/dL (8.4-10.2); Carbon Dioxide 26 mmol/L (22-32); Chloride 105 mmol/L (98-107); Creatine Kinase 91 U/L (55-170); Estimated Glomerular Filt Rate > 60 mL/min (>60); Ethanol (ETOH) < 10 mg/dL (<10); Globulin 3.3 g/dL (1.7-4.1); Glucose 113 mg/dL (70-99); HEMOLYSIS < 15 (0-50); Potassium 4.4 mmol/L (3.4-5.1); Sodium 140 mmol/L (137-145); Total Protein 7.9 g/dL (6.3-8.2)
[2025-01-03 11:06] LABS: Add Manual Diff / Slide Review NO; Hematocrit 44.5 % (41-53); Hemoglobin 15.0 g/dL (13.5-17.5); Lymphocytes Absolute Auto 1900 /uL (1100-4500); Mean Corpuscular HGB Conc 33.7 % (30-36); Mean Corpuscular Hemoglobin 32.7 PG (26-34); Mean Corpuscular Volume 97.0 fL (80-100); Platelet Count 222 X10^3/uL (150-400)
[2025-01-03 11:15] LABS: Troponin I < 0.012 ng/mL (0.01-0.034)
[2025-01-03 11:15] LABS: COVID19 -Nasal RAPID Negative (Negative)
[2025-01-03 14:08] LABS: Appearance Urine UA CLEAR; Bilirubin Urine UA NEGATIVE (NEGATIVE); Color Urine UA YELLOW; Glucose Urine UA NEGATIVE (Negative); Ketones Urine UA NEGATIVE (NEGATIVE); Leukocyte Esterase Urine UA NEGATIVE (NEGATIVE); Nitrite Urine UA NEGATIVE (Negative); Occult Blood Urine UA NEGATIVE (Negative); Protein Urine UA NEGATIVE (Negative); Specific Gravity Urine UA 1.010 (1.000-1.035); Urobilinogen Urine UA 0.2 E.U./dL (0.2); pH Urine UA 5.5 (4.5-8.0)
[2025-01-03 14:13] LABS: Culture Indicated Urine Cult Not Indicated
[2025-01-03 16:39] LABS: Ur Specific Gravity Normal (Normal)
[2025-01-03 16:40] LABS: UR Morphine/Opiate cutoff 300 Negative (Negative); Urine MDMA Negative (Negative); Urine Methamphetamines Negative (Negative); Urine Tetrahydrocannabinol Positive (Negative); Urine Tricyclic Antidepressant Negative (Negative)
== END 2025-01-03 16:08 | disposition home or self-care (01) ==
PROVIDERS: Emergency Provider Emergency Medicine; PCP Nurse Practitioner Family
DX: R42 Dizziness and giddiness (principal); R41.0 Disorientation, unspecified; Z86.73 Personal history of transient ischemic attack (TIA), and cerebral infarction without residual deficits
CPT/HCPCS: 36415; 70450; 70496; 70498; 80053; 80305; 80320; 81001; 82550; 82962; 84484; 85025; 85610; 85730; 87635; 99284; Q9967